=== PATIENT | male | born 1980 | race Caucasian/White ===

== ENCOUNTER 2017-04-13 10:39 | Inpatient (IN) | payer OTHER ==
[~2017-04-13] VITALS: Ht 167.6 cm; Wt 80.7 kg
[~2017-04-13 10:39] MED LIST: AMOX1TAB43 PO; BUPR2MIS SL
[2017-04-13] MEDS ORDERED: SODIUM CHLORIDE 0.9% 1000ML 1,000 ML IV ONE (10:49)
[2017-04-13] MEDS ORDERED: SODIUM CHLORIDE 0.9% 1000ML 1,000 ML IV STA (10:56)
--- NOTE | 2017-04-13 11:07 | EMERGENCY ROOM VISIT NOTE ---
History Report prepared by Dory: Kaley Lee Under the Supervision of: Dr. Roshan Gonzalez D.O. First contact with patient: 10:42 Stated Complaint: AMS/ [facility] History of Present Illness The patient is a 37 year old male who presents to the Emergency Room with a sudden change in mental status that occurred prior to arrival. Per nursing staff the patient is being held under a 302 at the [facility] and is from [place]. They note that the patient has a history of seizures and schizophrenia. Nursing staff notes that the patient has been falling and having strange movements, which is a change from his baseline. Nursing staff notes that the patient is currently undergoing alcohol and opiate withdrawal. Nursing staff from the [facility] reports that the patient fell at least three times today. Nursing staff from the [facility] report that the patient arrived at their facility on Wednesday, and notes that the patient has been walking around their facility naked into other patient's rooms. The history is limited secondary to the patient's altered mental status. Source of History: caregiver, nursing staff History Limited By: AMS Onset: prior to arrival Position: other (global) Quality: other (altered mental status) Timing: other (sudden) Review of Systems The history and ROS are limited secondary to the patient's altered mental status. Past Medical & Surgical Medical Problems: (1) Schizophrenia (2) Seizure Family History Unknown Social History Smoking Status: Current Every Day Smoker Drug Use: marijuana, other Marital Status: single Housing Status: unknown Occupation Status: unemployed Current/Historical Medications Scheduled Buprenorphine Hcl-Naloxone Hcl (Suboxone 8-2 Mg), 1 DOSE PO BID Diphenhydramine Hcl (Benadryl Allergy), 50 MG PO TID Divalproex Sodium (Depakote), 250 MG PO QAM Divalproex Sodium (Depakote), 500 MG PO HS Folic Acid (Folvite), 1 MG PO DAILY Haloperidol (Haldol), 5 MG PO TID Levetiracetam (Keppra), 500 MG PO BID Birch Tree Carbonate (Birch Tree Carbonate), 150 MG PO HS Lorazepam (Ativan), 1 MG PO DIRECTED Multivitamin (Multivitamin), 1 TAB PO DAILY Olanzapine (Zyprexa), 5 MG PO HS Sertraline (Zoloft), 25 MG PO QAM Thiamine Hcl (Vitamin B-1), 100 MG PO QAM Trazodone Hcl (Trazodone), 100 MG PO HS Allergies Coded Allergies: No Known Allergies (Unverified , 11/30/15) Physical Exam Vital Signs Date Time Temp Pulse Resp B/P (MAP) Pulse Ox O2 Delivery O2 Flow Rate FiO2 04/13/17 15:04 74 17 99 Room Air 04/13/17 15:01 137/82 04/13/17 14:59 71 16 100 04/13/17 14:54 71 24 100 04/13/17 14:39 110 22 100 04/13/17 14:34 82 28 100 04/13/17 14:31 150/96 04/13/17 14:29 89 19 100 04/13/17 14:24 81 15 100 04/13/17 14:19 73 20 100 04/13/17 14:14 83 20 99 04/13/17 14:09 86 13 100 04/13/17 14:04 81 16 94 04/13/17 14:01 141/88 04/13/17 13:59 73 16 100 04/13/17 13:54 78 14 100 04/13/17 13:49 80 19 100 04/13/17 13:44 80 17 99 04/13/17 13:39 82 19 84 04/13/17 13:34 85 22 100 04/13/17 13:30 132/89 04/13/17 13:29 81 24 100 04/13/17 13:24 81 19 100 04/13/17 13:19 81 24 99 04/13/17 13:14 82 20 100 04/13/17 13:09 85 23 100 04/13/17 13:04 81 32 99 04/13/17 12:59 87 16 04/13/17 12:54 83 14 100 04/13/17 12:49 87 21 99 04/13/17 12:44 89 23 98 04/13/17 12:39 77 20 100 04/13/17 12:34 82 18 93 04/13/17 12:30 100 Room Air 04/13/17 12:29 84 22 100 04/13/17 12:24 90 18 100 04/13/17 12:19 82 22 98 04/13/17 12:14 82 18 97 04/13/17 12:09 87 18 100 04/13/17 12:04 56 15 100 04/13/17 12:00 102/89 04/13/17 11:59 87 15 04/13/17 11:53 100 Room Air 04/13/17 11:34 62 12 115/73 100 Room Air 04/13/17 11:29 53 15 100 04/13/17 11:24 57 12 100 04/13/17 11:22 115/73 04/13/17 11:19 60 24 100 04/13/17 11:14 61 14 100 04/13/17 11:09 65 22 99 04/13/17 11:05 131/77 04/13/17 11:04 70 22 98 04/13/17 10:59 66 16 95 04/13/17 10:54 55 15 99 04/13/17 10:50 57 04/13/17 10:49 59 16 96 04/13/17 10:46 37.2 83 14 131/77 96 Room Air 04/13/17 10:45 131/77 Physical Exam GENERAL: Patient is listless, does not respond to verbal or painful stimuli. Sonorous respirations noted. EYES: Pupils are constricted and minimally reactive to light. EARS, NOSE, MOUTH AND THROAT: The nose is without any evidence of any deformity. Mucous membranes are dry tongue is midline NECK: The neck is nontender and supple. RESPIRATORY: Shallow respirations noted, no abnormal lung sounds appreciated. CARDIOVASCULAR: Bradycardic rate, but regular, no definite murmur noted to auscultation. GASTROINTESTINAL: The abdomen is soft. Bowel sounds are present in all quadrants. Abdomen is nontender MUSCULOSKELETAL/EXTREMITIES: There is no evidence of gross deformity full range of motion is noted in the hips and shoulders SKIN: Trace pedal edema bilaterally, abrasions to both lower extremities with diffuse ecchymosis, no deformity. NEUROLOGIC: Patient will not answer questions at this time, patellar reflexes are 1+ bilaterally. Medical Decision & Procedures ER Provider Diagnostic Interpretation: Radiology results as stated below per my review and radiologist interpretation: HEAD CT NONCONTRAST CT DOSE: HISTORY: Mental status change altered MS TECHNIQUE: Multiaxial CT images of the head were performed without the use of intravenous contrast. Comparison: 12/01/2015 Findings: The paranasal sinuses and mastoid air cells are clear. The calvarium and skull base are intact. The ventricles and sulci are within normal limits. There is no mass, hematoma, midline shift, or acute infarct. Impression: No acute intracranial abnormality. Electronically signed by: Derek Park M.D. 04/13/2017 11:50 AM Dictated Date/Time: 04/13/2017 11:48 AM CHEST ONE VIEW PORTABLE CLINICAL HISTORY: Sepsis dyspnea COMPARISON STUDY: No previous studies for comparison. FINDINGS: The bones soft tissues and hemidiaphragms are normal. The cardiomediastinal silhouette is normal. The lungs are clear. The pulmonary vasculature is normal. IMPRESSION: Negative chest. Electronically signed by: Derek Park M.D. 04/13/2017 11:04 AM Dictated Date/Time: 04/13/2017 11:[address] DOSE: 1129.07 mGy.cm HISTORY: Trauma fqll. altered MS TECHNIQUE: Multiaxial CT images of the cervical spine were performed and reformatted in the sagittal and coronal plane without the use of contrast. COMPARISON: None. FINDINGS: No fractures. No subluxation. Prevertebral soft tissues and the C1-C2 interval are intact. No pneumothorax. IMPRESSION: No fractures within the cervical spine. Electronically signed by: Derek Park M.D. 04/13/2017 11:52 AM Dictated Date/Time: 04/13/2017 11:50 AM Laboratory Results 04/13/17 11:19 Red Blood Count 4.01, Mean Corpuscular Volume 92.3, Mean Corpuscular Hemoglobin 32.4, Mean Corpuscular Hemoglobin Concent 35.1, Mean Platelet Volume 11.1, Neutrophils (%) (Auto) 79.6, Lymphocytes (%) (Auto) 12.6, Monocytes (%) (Auto) 7.3, Eosinophils (%) (Auto) 0.1, Basophils (%) (Auto) 0.2, Neutrophils # (Auto) 9.01, Lymphocytes # (Auto) 1.43, Monocytes # (Auto) 0.82, Eosinophils # (Auto) 0.01, Basophils # (Auto) 0.02 04/13/17 11:19 Test 04/13/17 11:19 04/13/17 11:22 04/13/17 12:10 04/13/17 14:03 White Blood Count 11.31 K/uL (4.8-10.8) Red Blood Count 4.01 M/uL (4.7-6.1) Hemoglobin 13.0 g/dL (14.0-18.0) Hematocrit 37.0 % (42-52) Mean Corpuscular Volume 92.3 fL (80-100) Mean Corpuscular Hemoglobin 32.4 pg (25-34) Mean Corpuscular Hemoglobin Concent 35.1 g/dl (32-36) Platelet Count 275 K/uL (130-400) Mean Platelet Volume 11.1 fL (7.4-10.4) Neutrophils (%) (Auto) 79.6 % Lymphocytes (%) (Auto) 12.6 % Monocytes (%) (Auto) 7.3 % Eosinophils (%) (Auto) 0.1 % Basophils (%) (Auto) 0.2 % Neutrophils # (Auto) 9.01 K/uL (1.4-6.5) Lymphocytes # (Auto) 1.43 K/uL (1.2-3.4) Monocytes # (Auto) 0.82 K/uL (0.11-0.59) Eosinophils # (Auto) 0.01 K/uL (0-0.5) Basophils # (Auto) 0.02 K/uL (0-0.2) RDW Standard Deviation 44.5 fL (36.4-46.3) RDW Coefficient of Variation 13.3 % (11.5-14.5) Immature Granulocyte % (Auto) 0.2 % Immature Granulocyte # (Auto) 0.02 K/uL (0.00-0.02) Erythrocyte Sedimentation Rate 10 mm/hr (0-14) Prothrombin Time 11.4 SECONDS (9.0-12.0) Prothromb Time International Ratio 1.1 (0.9-1.1) Activated Partial Thromboplast Time 26.8 SECONDS (21.0-31.0) Partial Thromboplastin Ratio 1.0 Venous Blood pH 7.38 (7.36-7.41) Venous Blood Partial Pressure CO2 48 mmHg (38.0-50.0) Venous Blood Partial Pressure O2 21 mmHg Venous Blood HCO3 28 mmol/L Venous Blood Oxygen Saturation < 60.0 % Venous Blood Base Excess 2.5 mmol/L Anion Gap 7.0 mmol/L (3-11) Est Creatinine Clear Calc Drug Dose 95.4 ml/min Estimated GFR () 74.4 Estimated GFR (Non- 64.2 BUN/Creatinine Ratio 23.1 (10-20) Calcium Level 9.6 mg/dl (8.5-10.1) Phosphorus Level 2.9 mg/dl (2.5-4.9) Magnesium Level 2.4 mg/dl (1.8-2.4) Total Bilirubin 1.0 mg/dl (0.2-1) Aspartate Amino Transf (AST/SGOT) 95 U/L (15-37) Alanine Aminotransferase (ALT/SGPT) 35 U/L (12-78) Alkaline Phosphatase 84 U/L (45-117) Ammonia < 10.0 umol/L (11-32) Creatine Kinase MB 23.5 ng/ml (0.5-3.6) Creatine Kinase MB Ratio 0.6 (0-3.0) Troponin I < 0.015 ng/ml (0-0.045) C-Reactive Protein 0.30 mg/dl (0-0.29) Total Protein 7.7 gm/dl (6.4-8.2) Albumin 4.4 gm/dl (3.4-5.0) Globulin 3.3 gm/dl (2.5-4.0) Albumin/Globulin Ratio 1.3 (0.9-2) Lipase 142 U/L (73-393) Valproic Acid (Depakene) Level 42 mcg/ml (50-100) Birch Tree Level < 0.2 mMOL/L (0.6-1.2) Ethyl Alcohol mg/dL < 3.0 mg/dl (0-3) Bedside Lactic Acid Venous 0.84 mmol/L (0.90-1.70) Urine Color YELLOW Urine Appearance CLEAR (CLEAR) Urine pH 5.5 (4.5-7.5) Urine Specific [place] 1.029 (1.000-1.030) Urine Protein 1+ (NEG) Urine Glucose (UA) NEG (NEG) Urine Ketones 1+ (NEG) Urine Occult Blood 1+ (NEG) Urine Nitrite NEG (NEG) Urine Bilirubin NEG (NEG) Urine Urobilinogen NEG (NEG) Urine Leukocyte Esterase NEG (NEG) Urine WBC (Auto) 1-5 /hpf (0-5) Urine RBC (Auto) 0-4 /hpf (0-4) Urine Hyaline Casts (Auto) /lpf (0-5) Urine Epithelial Cells (Auto) >30 /lpf (0-5) Urine Bacteria (Auto) NEG (NEG) Urine Renal Epithelial Cells 10-20 /lpf (0-5) Urine Pathogenic Casts /lpf (0) Total Creatine Kinase 3597 U/L (39-308) Test 04/13/17 14:50 Urine Opiates Screen NEG (NEG) Urine Methadone, Qualitative NEG (NEG) Urine Barbiturates NEG (NEG) Urine Phencyclidine (PCP) Level NEG (NEG) Ur Amphetamine/Methamphetamine NEG (NEG) MDMA (Ecstasy) Screen POS (NEG) Urine Benzodiazepines Screen NEG (NEG) Urine Cocaine Metabolite NEG (NEG) Urine Marijuana (THC) POS (NEG) Laboratory results per my review. Medications Administered Medications (Trade) Dose Ordered Sig/Natalio Route Start Time Stop Time Status Last Admin Dose Admin Sodium Chloride 1,000 ml @ 999 mls/hr Q1H1M ONCE IV 04/13/17 10:49 04/13/17 11:49 DC 04/13/17 10:49 999 MLS/HR Sodium Chloride 1,000 ml @ 999 mls/hr Q1H1M STAT IV 04/13/17 10:56 04/13/17 11:56 DC 04/13/17 10:56 999 MLS/HR ECG Indication: altered mental status Rate (beats per minute): 53 Rhythm: sinus bradycardia Findings: no ectopy, other (no acute ST segment abnormality ) Comparison ECG Date: no prior available ED Course 1048: The patient was evaluated in room C4. A complete history and physical examination were performed. 1049: Ordered Sodium Chloride 1000 ml @ 999 mls/hr IV. 1056: Ordered Sodium Chloride 1000 ml @ 999 mls/hr IV. 1212: I reevaluated the patient and he is unchanged. I discussed the exam findings with the nurse from the [facility] and I discussed the treatment plan. She verbalized complete understanding and agreement. The patient will be evaluated for further treatment. 1218: I discussed the patients case with JO ANN Dillon. He is going to evaluate the patient for further treatment. Medical Decision Differential diagnosis: Etiologies such as metabolic, infection, hypoglycemia, electrolyte abnormalities , cardiac sources, intracerebral event, toxicologic, neurologic, as well as others were entertained. Medication Reconciliation: I attest that I have personally reviewed the patient' s current medications list. The patient's blood pressure was reviewed and he was found to be hypotensive. Nursing notes reviewed. The patient is a 37-year-old male who presented to the emergency department for an evaluation from the [facility]. The patient was admitted to the [facility] for inpatient psychiatric care. He was medically cleared in [facility]. He has a history of schizophrenia as well as seizure disorder but also has a history of drug abuse. The patient started having decreased mental status ever since he was noted there 2 days ago. The patient presented to the emergency department with pupils are constricted and alteration of mental status. He was treated with IV fluids in the emergency department. He was reevaluated multiple times. His condition continued to improve while he was in the emergency department. I discussed his case with the on-call [facility] hospitalist. I considered doing the patient Narcan but his respiratory status was acceptable and his condition continued to improve. I also discussed the possibility that he may require an EEG with the admitting team. Consults Time Called: 1214 Consulting Physician: JO ANN Valdovinos Returned Call: 1218 I discussed the patients case with JO ANN Dillon. He is going to evaluate the patient for further treatment. Impression Primary Impression: Altered mental status Additional Impressions: Rhabdomyolysis Head injury History of drug abuse History of schizophrenia Dehydration Falls Scribe Attestation The scribe's documentation has been prepared under my direction and personally reviewed by me in its entirety. I confirm that the note above accurately reflects all work, treatment, procedures, and medical decision making performed by me. Departure Information Dispostion Being Evaluated By Hospitalist Referrals No Doctor, Assigned (PCP) Problem Qualifiers Primary Impression: Altered mental status Altered mental status type: unspecified Qualified Codes: R41.82 - Altered mental status, unspecified Additional Impressions: Head injury Encounter type: initial encounter Qualified Codes: S09.90XA - Unspecified injury of head, initial encounter Falls Encounter type: initial encounter Qualified Codes: W19.XXXA - Unspecified fall, initial encounter
[2017-04-13] MEDS ORDERED: ATV/1 PO (11:16)
[2017-04-13 11:35] LABS: BASO % 0.2 %; BASO ABS # 0.02 K/uL (0-0.2); COMPLETE YES; EOS % 0.1 %; IG% 0.2 %; LYMPH % 12.6 %; LYMPH ABS # 1.43 K/uL (1.2-3.4); MEAN CELL VOLUME 92.3 fL (80-100); MEAN CORPUSCULAR HEMOGLOBIN 32.4 pg (25-34); MEAN CORPUSCULAR HGB CONC 35.1 g/dl (32-36); MEAN PLATELET VOLUME 11.1 fL (7.4-10.4); MONO % 7.3 %; NEUT % 79.6 %; PLATELET COUNT 275 K/uL (130-400); RED BLOOD COUNT 4.01 M/uL (4.7-6.1); VEN BLD GAS O2 SATURATION < 60.0 %; VEN BLOOD GAS BASE EXCESS 2.5 mmol/L; VENOUS BLOOD GAS PCO2 48 mmHg (38.0-50.0); VENOUS BLOOD GAS PO2 21 mmHg; WHITE BLOOD COUNT 11.31 K/uL (4.8-10.8)
[2017-04-13] MEDS ORDERED: DIPH25CA65 PO (11:48)
[2017-04-13] MEDS ORDERED: LITH150C6 PO (11:48)
[2017-04-13] MEDS ORDERED: DIVA125T18 PO (11:48)
[2017-04-13] MEDS ORDERED: SERT25TA PO (11:48)
[2017-04-13] MEDS ORDERED: HALO5TAB PO (11:48)
[2017-04-13] MEDS ORDERED: MULT-506 PO (11:48)
[2017-04-13] MEDS ORDERED: DIVA500T59 PO (11:48)
[2017-04-13] MEDS ORDERED: BUPR1SUB23 PO (11:48)
[2017-04-13] MEDS ORDERED: TRAZ100T29 PO (11:48)
[2017-04-13] MEDS ORDERED: LEVE500T13 PO (11:48)
[2017-04-13] MEDS ORDERED: THIA100T11 PO (11:48)
[2017-04-13] MEDS ORDERED: OLAN-111 PO (11:48)
[2017-04-13] MEDS ORDERED: FOLI1TAB7 PO (11:48)
--- NOTE | 2017-04-13 11:51 | DIAGNOSTIC IMAGING REPORT ---
HEAD CT NONCONTRAST CT DOSE: HISTORY: Mental status change altered MS TECHNIQUE: Multiaxial CT images of the head were performed without the use of intravenous contrast. Comparison: 12/01/2015 Findings: The paranasal sinuses and mastoid air cells are clear. The calvarium and skull base are intact. The ventricles and sulci are within normal limits. There is no mass, hematoma, midline shift, or acute infarct. Impression: No acute intracranial abnormality. Electronically signed by: Derek Park M.D. 04/13/2017 11:50 AM Dictated Date/Time: 04/13/2017 11:48 AM
[2017-04-13 11:52] LABS: INR 1.1 (0.9-1.1); PROTHROMBIN TIME (PATIENT) 11.4 SECONDS (9.0-12.0)
--- NOTE | 2017-04-13 11:53 | DIAGNOSTIC IMAGING REPORT ---
CERVICAL SPINE CT CT DOSE: 1129.07 mGy.cm HISTORY: Trauma fqll. altered MS TECHNIQUE: Multiaxial CT images of the cervical spine were performed and reformatted in the sagittal and coronal plane without the use of contrast. COMPARISON: None. FINDINGS: No fractures. No subluxation. Prevertebral soft tissues and the C1-C2 interval are intact. No pneumothorax. IMPRESSION: No fractures within the cervical spine. Electronically signed by: Derek Park M.D. 04/13/2017 11:52 AM Dictated Date/Time: 04/13/2017 11:50 AM
[2017-04-13 11:54] LABS: ALT/SGPT 35 U/L (12-78); BLOOD UREA NITROGEN 32 mg/dl (7-18); BUN/CREATININE RATIO 23.1 (10-20); CARBON DIOXIDE 27 mmol/L (21-32); CHLORIDE 105 mmol/L (98-107); GLUCOSE 86 mg/dl (70-99); MAGNESIUM 2.4 mg/dl (1.8-2.4); SODIUM 139 mmol/L (136-145)
[2017-04-13 11:55] LABS: CALCIUM 9.6 mg/dl (8.5-10.1)
[2017-04-13] MEDS ORDERED: NALOXONE HCL 0.4 MG/1 ML VIAL/CARP IV STA (12:00)
[2017-04-13 12:08] LABS: ALB/GLOB RATIO 1.3 (0.9-2); ALKALINE PHOSPHATASE 84 U/L (45-117); AST/SGOT 95 U/L (15-37); CKMB/CK RATIO 0.6 (0-3.0); PHOSPHORUS 2.9 mg/dl (2.5-4.9)
[2017-04-13 12:11] LABS: LITHIUM < 0.2 mMOL/L (0.6-1.2)
[2017-04-13 12:30] VITALS: BP 137/86; PULSE 88; TEMP 36.7; O2SAT 100; BMI 28.8; BMI 48.2
[2017-04-13 12:42] LABS: URINE APPEARANCE CLEAR (CLEAR); URINE BILIRUBIN NEG (NEG); URINE COLOR YELLOW; URINE EPITHELIAL CELL AUTO >30 /lpf (0-5); URINE NITRITE NEG (NEG); URINE PH 5.5 (4.5-7.5); URINE SPECIFIC GRAVITY 1.029 (1.000-1.030); UROBILINOGEN NEG (NEG); ZZURINE CULT IF INDIC CATH NO
[2017-04-13 12:49] LABS: MANUAL MICROSCOPIC REQUIRED? NO; REVIEW REQ? YES
[2017-04-13 13:35] LABS: BENZODIAZEPINE, URINE NEG (NEG); COCAINE,URINE NEG (NEG); PHENCYCLIDINE, URINE NEG (NEG)
[2017-04-13] MEDS ORDERED: LORAZEPAM 0.5 MG TAB PO PRN (13:45)
[2017-04-13] MEDS ORDERED: TRAZODONE HCL 50 MG TAB PO PRN (13:45)
[2017-04-13] MEDS ORDERED: ALUMINUM/MAGNESIUM/SIMETH (MAALOX MAX) 30 ML UDC PO PRN (14:15)
[2017-04-13] MEDS ORDERED: POLYETHYLENE (MIRALAX) 17 GM PACK PO PRN (14:15)
[2017-04-13] MEDS ORDERED: MAGNESIUM HYDROXIDE SUSP 30 ML UDC PO PRN (14:15)
[2017-04-13] MEDS ORDERED: ACETAMINOPHEN 325 MG TAB PO PRN (14:15)
[2017-04-13 15:16] VITALS: Ht 167.6 cm; Wt 80.7 kg
--- NOTE | 2017-04-13 15:20 | HISTORY & PHYSICAL EXAMINATION ---
DATE OF ADMISSION: 04/13/2017 CHIEF COMPLAINT: Change in mental status. HISTORY OF PRESENT ILLNESS: The patient is a 37-year-old male with a history of schizophrenia, came from mental psychiatric facility. The patient initially was at [facility] on 04/11/2017 and was medically cleared and committed involuntarily to admission to [facility] 302. Upon the H&P that I received from [facility] presentation was uneventful. He was awake, alert, oriented upon admission to [facility]. While he stated he has multiple falls and he was hitting his head and joints and he was very lethargic most of the time. Today, staff found him almost unresponsive. He was sent to our ED facility for further evaluation. While in our facility he seems to be very dehydrated and was started on IV fluid. After about 2-3 hours, he started to be able to communicate and answer simple questions and follow simple commands. He will be admitted for further evaluation and management. PAST MEDICAL HISTORY: Schizophrenia. SOCIAL HISTORY: History of heroin abuse in the past, currently on Suboxone. The rest of the social history was not obtainable due to his mental status. FAMILY HISTORY: Unobtainable due to his mental status. REVIEW OF SYSTEMS: He denied any pain, but he was lethargic, unsure if I can count on this, but at bed rest of the review of systems is unobtainable. LABORATORY DATA: White blood cell count of 11.3, hemoglobin 13, platelet 275. BUN is 32, creatinine 1.4, BUN is 105. Sodium 139, potassium is 4. Urine drug screen is pending. Magnesium level was 2.4 and phosphorus 2.9. AST is 95, ALT is 35. Ammonia level is less than 10. Total creatinine kinase is 4228. Troponin is negative. Cornelius level is undetectable. Valproic acid level is 42. HOME MEDICATIONS: 1. Suboxone 8-2 mg 1 p.o. b.i.d. 2. Benadryl 50 mg p.o. t.i.d. 3. Depakote 250 mg q.a.m. and 500 at bedtime. 4. Folic acid and thiamine supplements. 5. Multivitamin. 6. Haldol 5 mg p.o. t.i.d. 7. Keppra 500 p.o. b.i.d. 8. Cornelius carbonate 150 mg p.o. at bedtime. 9. Ativan 1 mg p.o. as directed. 10. Zyprexa 5 mg p.o. at bedtime. 11. Zoloft 25 mg p.o. q.a.m. 12. Trazodone 100 mg p.o. at bedtime. ALLERGIES: No known allergy. PHYSICAL EXAMINATION: VITAL SIGNS: Temperature 37.2, pulse 82, respirations 22, blood pressure 102/89, saturation 98% room air. GENERAL: The patient is average built, appears to be not in acute distress, very lethargic. HEAD, EYES, EARS, NOSE, AND THROAT: No jaundice, no pallor. Dry mucous membrane, had bruise on the left eyebrow. NECK: Supple. No swelling. HEART: S1, S2 normal. No gallop, rub or murmur. LUNGS: Clear to auscultation bilaterally. Normal chest wall expansion. ABDOMEN: Soft, nontender, nondistended. NEUROLOGIC: Lethargic but follows simple commands. Moves all extremities. Sensation intact. EXTREMITIES: No cyanosis or edema. SKIN: No rash or petechia. PSYCHIATRIC: Unable to evaluate since he is lethargic, but he was able to answer questions appropriately. IMAGING: CT head showed no acute intracranial abnormality. A chest x-ray was negative. CT cervical spine showed no fractures. ASSESSMENT: 1. Lethargy/metabolic encephalopathy, multifactorial secondary to below. 2. Unintentional over medication, most likely secondary to Suboxone, Haldol, Benadryl, trazodone and Ativan. 3. Rhabdomyolysis. 4. Acute kidney injury. 5. Severe dehydration. 6. Schizophrenia. 7. History of heroin abuse, currently on Suboxone. 8. History of alcohol abuse, currently on folic acid and thiamine supplements. PLAN: 1. Admit patient to telemetry. Start patient on generous IV fluid hydration. 2. Monitor renal function and electrolytes. 3. I adjusted some of patient's medications. I did decrease his trazodone to 50 mg instead of 100. I decreased his Haldol to 2 mg instead of 5 mg t.i.d. I decreased his lorazepam to 0.5 mg q. 8 hours. 4. Consult neurologist to rule out seizure and postictal condition. 5. Consult psychiatrist for adjustment of his psych meds. 6. GI and DVT prophylaxis.
[2017-04-13 15:43] LABS: BENZODIAZEPINE, URINE NEG (NEG); COCAINE,URINE NEG (NEG); PHENCYCLIDINE, URINE NEG (NEG)
[2017-04-13 16:30] VITALS: O2SAT 99
[2017-04-13] MEDS: LEVETIRACETAM 500 MG TAB PO SCH ×2 (17:21→21:40)
[2017-04-13] MEDS: DIVALPROEX DELAY REL TAB 125 MG TABEC PO SCH (17:21)
[2017-04-13] MEDS: SODIUM CHLORIDE 0.9% 1000ML 1,000 ML IV SCH ×2 (17:24→23:29)
[2017-04-13 19:04] VITALS: BP 130/85; PULSE 52; TEMP 36.2; O2SAT 99
[2017-04-13] MEDS ORDERED: BUPRENORPHINE/NALOXONE 8/2 MG TAB SL SCH (21:00)
[2017-04-13] MEDS ORDERED: DIVALPROEX SODIUM 500 MG DELAY RELEASE TAB PO SCH (21:00)
[2017-04-13] MEDS: HALOPERIDOL 1 MG TAB PO SCH (21:00)
[2017-04-13] MEDS ORDERED: BUPRENORPHINE/NALOXONE 2/0.5MG 1 TAB PO SCH (21:00)
[2017-04-13] MEDS ORDERED: LITHIUM CARBONATE SR 300 MG TAB (LITHOBID) PO SCH (21:00)
--- NOTE | 2017-04-13 21:34 | Progress Note ---
Progress Note Date of Service Apr 13, 2017. Progress Note Notified by nursing that patient. Patient remains somnolent, per baseline as noted since being admitted. Notes that [facility] records suggest he was EtOH withdrawal protocol Due to AMS; held Haldol, Zyprexa and Suboxone until mentation clears Also ordered for alcohol withdrawal scale assessments; will hold off on Librium/ Ativan at this time, as patient is already arriving with reduced LOC Will continue to follow
[2017-04-13] MEDS: HEPARIN SOD 5000 UNIT/0.5 ML CARP SQ SCH (21:41)
[2017-04-13 23:01] VITALS: BP 128/70; PULSE 78; TEMP 36.7; O2SAT 98
[2017-04-14 02:53] VITALS: BP 124/76; PULSE 72; TEMP 35.9; O2SAT 98
[2017-04-14] MEDS: HEPARIN SOD 5000 UNIT/0.5 ML CARP SQ SCH ×3 (06:00→20:22)
[2017-04-14] MEDS: SODIUM CHLORIDE 0.9% 1000ML 1,000 ML IV SCH ×2 (06:20→11:37)
[2017-04-14 07:50] LABS: ESTIMATED AVERAGE GLUCOSE 108 mg/dl; HA1C FLAG Normal (Normal)
[2017-04-14 08:22] LABS: ALB/GLOB RATIO 1.2 (0.9-2); BUN/CREATININE RATIO 16.8 (10-20); CALCIUM 7.9 mg/dl (8.5-10.1); CREATININE 0.95 mg/dl (0.60-1.40); MAGNESIUM 2.4 mg/dl (1.8-2.4); POTASSIUM 3.8 mmol/L (3.5-5.1)
[2017-04-14 08:30] LABS: BASO % 0.5 %; BASO ABS # 0.02 K/uL (0-0.2); COMPLETE YES; EOS % 2.4 %; HEMATOCRIT 33.2 % (42-52); IG% 0.3 %; LYMPH ABS # 1.29 K/uL (1.2-3.4); MEAN CORPUSCULAR HEMOGLOBIN 31.3 pg (25-34); MEAN PLATELET VOLUME 10.9 fL (7.4-10.4); MONO % 12.2 %; NEUT % 49.6 %; PLATELET COUNT 240 K/uL (130-400); RED BLOOD COUNT 3.61 M/uL (4.7-6.1); WHITE BLOOD COUNT 3.69 K/uL (4.8-10.8)
[2017-04-14] MEDS: THIAMINE HCL 100 MG TAB PO SCH (08:34)
[2017-04-14] MEDS: LEVETIRACETAM 500 MG TAB PO SCH ×2 (08:34→20:22)
[2017-04-14] MEDS: DIVALPROEX DELAY REL TAB 125 MG TABEC PO SCH (08:35)
[2017-04-14] MEDS: FAMOTIDINE IV INJ 20 MG in DEXTROSE 5% 100ML 100 ML IV SCH (08:35)
[2017-04-14] MEDS: MULTIVITAMIN TAB PO SCH (08:35)
[2017-04-14] MEDS ORDERED: SERTRALINE HCL 50 MG TAB PO SCH (09:00)
[2017-04-14] MEDS ORDERED: DIVALPROEX DELAY REL TAB 125 MG TABEC PO ONE (11:15)
--- NOTE | 2017-04-14 11:15 | Neurology Consultation ---
Neurology Consultation Date of Consultation: Apr 14, 2017. Attending Physician: Angeline Mcintyre MD [facility] Reason for Consultation: Patient is a 37-year-old, who was asked to see the request of Dr. Trevor Aparicio, for neurologic consultation regarding unresponsive state and history of seizures. History of Present Illness Source: patient, caregiver, hospital records This patient has a long-standing history of drug or alcohol abuse. He states that for many years he would get drunk every night although he claims he has not been drinking much alcohol the last 5 years. He has abused multiple drugs including LSD, heroin, marijuana. He's had a history of intermittent seizures since 2007. In November 2015 he was admitted to the hospital for a seizure. This occurred after he took LSD. An MRI of the brain was unremarkable except for some sinusitis and EEG was unremarkable. He has had one seizure since and that was in March 2016. He's been on Keppra and Dilantin without significant seizures. He has been on Suboxone for quite some time because of his narcotic usage. Patient has a history of bipolar disorder and schizophrenia. He is on multiple medications for these problems as well including lithium, Zyprexa, Zoloft, trazodone, Haldol. He was admitted to the [facility] on a 302 on April 11. His first day was unremarkable. On April 12, he was acting unusual and was walking around naked and going into other patient's rooms. He fell several times over a 24-hour period into April 13. The patient does not remember falling. He was brought to the emergency room April 13 at 1046 hours in an unresponsive state. Temperature was 37 2, pulse 83, respiratory 14, blood pressure 131/77 and O2 saturation 96%. He was described as listless and had already decreased response to voice and would not follow commands CT scan of the head was unremarkable. Chest x-ray was unremarkable. CT scan of the cervical spine was unremarkable. Laboratory studies revealed a mild anemia on the CBC. ESR was 10. Chem profile was unremarkable. CK was elevated at 4228. Later on yesterday it was 3597. The patient was described as becoming more alert overnight last night. This morning, he is no complaint of pain or headache. He is not achy or sore, dizzy, or vertiginous. Past Medical/Surgical History Medical Problems: (1) Altered mental status Status: Acute (2) Dehydration Status: Acute (3) Falls Status: Acute (4) Head injury Status: Acute (5) History of drug abuse Status: Acute (6) History of schizophrenia Status: Acute (7) Hyperglycemia Status: Acute (8) Renal failure Status: Acute (9) Rhabdomyolysis Status: Acute History of seizures on anticonvulsants. No history of previous surgery. Family History Mother is alive at age 57 and has no significant medical problems Father age 54. He was drinking one outside in the winter and he ended up falling and "freezing to " Social History Patient smokes 2 pack of cigarettes per day for the last 15 years Patient was a markedly heavy alcohol user in the past drinking to excess nightly but claims she drinks intermittently now. He has used narcotics including heroin, marijuana, and LSD. He has not been employed and is on social security disability for the last 4-5 years.. Smoking Status: Current every day smoker Smokeless Tobacco Use: No Alcohol Use: occasionally Drug Use: marijuana, other Marital Status: single Housing Status: lives with family, unknown Occupation Status: unemployed Allergies Coded Allergies: No Known Allergies (Unverified , 11/30/15) Current Inpatient Medications Current Inpatient Medications Medications (Trade) Dose Ordered Sig/Natalio Route Start Time Stop Time Status Last Admin Dose Admin Divalproex Sodium (Depakote Delay Rel Tab) 250 mg QAM PO 04/13/17 15:00 05/13/17 14:59 04/14/17 08:35 250 MG Divalproex Sodium (Depakote Delay Rel Tab) 500 mg HS PO 04/13/17 21:00 05/13/17 20:59 04/13/17 21:40 500 MG Folic Acid (Folvite Tab) 1 mg DAILY PO 04/14/17 09:00 05/14/17 08:59 04/14/17 08:34 1 MG Haloperidol (Haldol Tab) 2 mg TID PO 04/13/17 21:00 05/13/17 20:59 Future Hold Levetiracetam (Keppra Tab) 500 mg BID PO 04/13/17 15:00 05/13/17 14:59 04/14/17 08:34 500 MG Lorazepam (Ativan Tab) 0.5 mg Q8H PRN PO 04/13/17 13:45 7/20/17 13:44 Multivitamins (Multivitamin Tab) 1 tab DAILY PO 04/14/17 09:00 05/14/17 08:59 04/14/17 08:35 1 TAB Olanzapine (Zyprexa Tab) 5 mg HS PO 04/13/17 21:00 05/13/17 20:59 Future Hold Sertraline HCl (Zoloft Tab) 25 mg QAM PO 04/14/17 09:00 05/14/17 08:59 04/14/17 08:35 25 MG Thiamine HCl (Vitamin B-1 Tab) 100 mg QAM PO 04/14/17 09:00 05/14/17 08:59 04/14/17 08:34 100 MG Trazodone HCl (Desyrel Tab) 50 mg HS PRN PO 04/13/17 13:45 05/13/17 13:44 Buprenorphine/ Naloxone (Suboxone Tab) 1 ea BID SL 04/13/17 21:00 05/13/17 20:59 Future Hold [place] Carbonate (Lithobid Tab) 150 mg HS PO 04/13/17 21:00 05/13/17 20:59 04/13/17 21:40 150 MG Sodium Chloride 1,000 ml @ 150 mls/hr Q6H40M IV 04/13/17 16:44 05/13/17 16:43 04/14/17 06:20 150 MLS/HR Famotidine 20 mg/ Dextrose 102 ml @ 200 mls/hr DAILY IV 04/14/17 09:00 05/14/17 08:59 04/14/17 08:35 200 MLS/HR Acetaminophen (Tylenol Tab) 650 mg Q4H PRN PO 04/13/17 14:15 05/13/17 14:14 Al Hydrox/Mg Hydrox/Simethicone (Maalox Max Susp) 15 ml Q4H PRN PO 04/13/17 14:15 05/13/17 14:14 Magnesium Hydroxide (Milk Of Magnesia Susp) 30 ml Q12H PRN PO 04/13/17 14:15 05/13/17 14:14 Polyethylene (Miralax Powder Packet) 17 gm DAILY PRN PO 04/13/17 14:15 05/13/17 14:14 Heparin Sodium (Porcine) (Heparin Sq 5000 Unit/0.5ml) 5,000 unit Q8 SQ 04/13/17 22:00 05/13/17 21:59 Review of Systems Constitutional: + fatigue, No weakness Eyes: No worsening of vision, No diplopia ENT: No hearing loss, No tinnitus Respiratory: No cough, No shortness of breath Cardiovascular: No chest pain, No palpitations Abdomen: No pain, No nausea Musculoskeletal: No joint pain, No muscle pain Genitourinary - Male: No dysuria, No urinary incontinence Neurologic: No memory loss, No weakness, No numbness/tingling, No vertigo, No balance problems Psychiatric: No depression symptoms, No anxiety Endocrine: + fatigue Hematologic / Lymphatic: No abnormal bleeding/bruising Integumentary: No rash Allergic / Immunologic: No hives Physical Exam Vital Signs (Past 24 Hrs): Date Time Temp Pulse Resp B/P (MAP) Pulse Ox O2 Delivery O2 Flow Rate FiO2 04/14/17 08:00 Room Air 04/14/17 04:00 Room Air 04/14/17 02:53 35.9 72 16 124/76 (92) 98 Room Air 04/13/17 23:59 Room Air 04/13/17 23:01 36.7 78 16 128/70 (89) 98 Room Air 04/13/17 20:00 Room Air 04/13/17 19:04 36.2 52 16 130/85 (100) 99 Room Air 04/13/17 16:30 36.7 74 17 137/82 99 04/13/17 15:04 74 17 99 Room Air 04/13/17 15:01 137/82 04/13/17 14:59 71 16 100 04/13/17 14:54 71 24 100 04/13/17 14:39 110 22 100 04/13/17 14:34 82 28 100 04/13/17 14:31 150/96 04/13/17 14:29 89 19 100 04/13/17 14:24 81 15 100 04/13/17 14:19 73 20 100 04/13/17 14:14 83 20 99 04/13/17 14:09 86 13 100 04/13/17 14:04 81 16 94 04/13/17 14:01 141/88 04/13/17 13:59 73 16 100 04/13/17 13:54 78 14 100 04/13/17 13:49 80 19 100 04/13/17 13:44 80 17 99 04/13/17 13:39 82 19 84 04/13/17 13:34 85 22 100 04/13/17 13:30 132/89 04/13/17 13:29 81 24 100 04/13/17 13:24 81 19 100 04/13/17 13:19 81 24 99 04/13/17 13:14 82 20 100 04/13/17 13:09 85 23 100 04/13/17 13:04 81 32 99 04/13/17 12:59 87 16 04/13/17 12:54 83 14 100 04/13/17 12:49 87 21 99 04/13/17 12:44 89 23 98 04/13/17 12:39 77 20 100 04/13/17 12:34 82 18 93 04/13/17 12:30 36.7 88 15 137/86 100 Room Air 04/13/17 12:29 84 22 100 04/13/17 12:24 90 18 100 04/13/17 12:19 82 22 98 04/13/17 12:14 82 18 97 04/13/17 12:09 87 18 100 04/13/17 12:04 56 15 100 04/13/17 12:00 102/89 04/13/17 11:59 87 15 04/13/17 11:53 100 Room Air 04/13/17 11:34 62 12 115/73 100 Room Air 04/13/17 11:29 53 15 100 04/13/17 11:24 57 12 100 04/13/17 11:22 115/73 04/13/17 11:19 60 24 100 04/13/17 11:14 61 14 100 04/13/17 11:09 65 22 99 04/13/17 11:05 131/77 04/13/17 11:04 70 22 98 04/13/17 10:59 66 16 95 Patient is right-handed. The patient is awake and alert. Speech is normal without aphasia or dysarthria. Mentation and thought processes are mildly slow but otherwise intact with orientation and reasonable fund of knowledge. Affect is mildly flat but mood and affect are otherwise normal and appropriate. Appearance and grooming are normal. The discs are sharp with positive venous pulsations. There are no exudates, hemorrhages, or blood vessel changes seen. Pupils are 4mm bilaterally and reactive to light. Extraocular eye muscles are intact without nystagmus. Visual acuity and visual butler seem normal grossly to confrontation. There are no deficits to sensation of the face bilaterally. Corneal reflexes are positive bilaterally. Facial strength and symmetry is normal bilaterally. Hearing seems intact grossly to voice and finger rub. Palate moves well without asymmetry. There is normal sternocleidomastoid and trapezius strength bilaterally. Tongue is midline with good strength bilaterally. Neck is with full range of motion without discomfort. There are no cervical bruits. There are no cranial or ocular bruits. Heart is without murmur. Cervical, thoracic, and lumbar spine are nontender to palpation. Gait is is not tested but stance sitting up in bed is quite normal. With outstretched arms there is no drift. There are no resting tremors. He has very mild coarse action tremor of the limbs diffusely. There is no ataxia with [id number] testing. There is good facility in the hands. There are no abnormal involuntary movements noted. Motor strength is 5/5 diffusely in the arms bilaterally including deltoids, biceps, brachioradialis, wrist flexors and extensors, real estate developer, and intrinsic hand muscles. Motor strength is 5/5 diffusely in the legs bilaterally including hip flexors, quadriceps, hamstring, gastrocnemius, tibialis anterior, tibialis posterior, and peroneii muscles bilaterally. Toe extensors are normal and there is good bulk in the extensor digitorum brevis muscle bilaterally. The limbs have good tone without rigidity or spasticity, and there is no atrophy noted. Muscle bulk is normal, there is no tenderness, no myotonia noted to percussion, and no fasciculations seen. Sensory examination is intact to pin and touch throughout all four limbs. Reflexes are 2/4 in the biceps, triceps, brachioradialis, quadriceps, and Achilles tendons bilaterally. Toes are downgoing with plantar stimulation bilaterally. Peripheral pulses are present and of normal quality distally in all four limbs. There is no peripheral edema noted. Laboratory Results Past 24 Hours: 04/14/17 06:55 Red Blood Count 3.61, Mean Corpuscular Volume 92.0, Mean Corpuscular Hemoglobin 31.3, Mean Corpuscular Hemoglobin Concent 34.0, Mean Platelet Volume 10.9, Neutrophils (%) (Auto) 49.6, Lymphocytes (%) (Auto) 35.0, Monocytes (%) (Auto) 12.2, Eosinophils (%) (Auto) 2.4, Basophils (%) (Auto) 0.5, Neutrophils # (Auto ) 1.83, Lymphocytes # (Auto) 1.29, Monocytes # (Auto) 0.45, Eosinophils # (Auto ) 0.09, Basophils # (Auto) 0.02 04/14/17 06:55 Test 04/13/17 11:19 04/13/17 11:22 04/13/17 12:10 04/13/17 14:03 Erythrocyte Sedimentation Rate 10 mm/hr (0-14) Prothrombin Time 11.4 SECONDS (9.0-12.0) Prothromb Time International Ratio 1.1 (0.9-1.1) Activated Partial Thromboplast Time 26.8 SECONDS (21.0-31.0) Partial Thromboplastin Ratio 1.0 Venous Blood pH 7.38 (7.36-7.41) Venous Blood Partial Pressure CO2 48 mmHg (38.0-50.0) Venous Blood Partial Pressure O2 21 mmHg Venous Blood HCO3 28 mmol/L Venous Blood Oxygen Saturation < 60.0 % Venous Blood Base Excess 2.5 mmol/L Ammonia < 10.0 umol/L (11-32) Creatine Kinase MB 23.5 ng/ml (0.5-3.6) Creatine Kinase MB Ratio 0.6 (0-3.0) Troponin I < 0.015 ng/ml (0-0.045) C-Reactive Protein 0.30 mg/dl (0-0.29) Lipase 142 U/L (73-393) Valproic Acid (Depakene) Level 42 mcg/ml (50-100) [place] Level < 0.2 mMOL/L (0.6-1.2) Ethyl Alcohol mg/dL < 3.0 mg/dl (0-3) Bedside Lactic Acid Venous 0.84 mmol/L (0.90-1.70) Urine Color YELLOW Urine Appearance CLEAR (CLEAR) Urine pH 5.5 (4.5-7.5) Urine Specific [place] 1.029 (1.000-1.030) Urine Protein 1+ (NEG) Urine Glucose (UA) NEG (NEG) Urine Ketones 1+ (NEG) Urine Occult Blood 1+ (NEG) Urine Nitrite NEG (NEG) Urine Bilirubin NEG (NEG) Urine Urobilinogen NEG (NEG) Urine Leukocyte Esterase NEG (NEG) Urine WBC (Auto) 1-5 /hpf (0-5) Urine RBC (Auto) 0-4 /hpf (0-4) Urine Hyaline Casts (Auto) /lpf (0-5) Urine Epithelial Cells (Auto) >30 /lpf (0-5) Urine Bacteria (Auto) NEG (NEG) Urine Renal Epithelial Cells 10-20 /lpf (0-5) Urine Pathogenic Casts /lpf (0) Total Creatine Kinase 3597 U/L (39-308) Test 04/13/17 14:50 04/14/17 06:55 Urine Opiates Screen NEG (NEG) Urine Methadone, Qualitative NEG (NEG) Urine Barbiturates NEG (NEG) Urine Phencyclidine (PCP) Level NEG (NEG) Ur Amphetamine/Methamphetamine NEG (NEG) MDMA (Ecstasy) Screen POS (NEG) Urine Benzodiazepines Screen NEG (NEG) Urine Cocaine Metabolite NEG (NEG) Urine Marijuana (THC) POS (NEG) White Blood Count 3.69 K/uL (4.8-10.8) Red Blood Count 3.61 M/uL (4.7-6.1) Hemoglobin 11.3 g/dL (14.0-18.0) Hematocrit 33.2 % (42-52) Mean Corpuscular Volume 92.0 fL (80-100) Mean Corpuscular Hemoglobin 31.3 pg (25-34) Mean Corpuscular Hemoglobin Concent 34.0 g/dl (32-36) Platelet Count 240 K/uL (130-400) Mean Platelet Volume 10.9 fL (7.4-10.4) Neutrophils (%) (Auto) 49.6 % Lymphocytes (%) (Auto) 35.0 % Monocytes (%) (Auto) 12.2 % Eosinophils (%) (Auto) 2.4 % Basophils (%) (Auto) 0.5 % Neutrophils # (Auto) 1.83 K/uL (1.4-6.5) Lymphocytes # (Auto) 1.29 K/uL (1.2-3.4) Monocytes # (Auto) 0.45 K/uL (0.11-0.59) Eosinophils # (Auto) 0.09 K/uL (0-0.5) Basophils # (Auto) 0.02 K/uL (0-0.2) RDW Standard Deviation 45.2 fL (36.4-46.3) RDW Coefficient of Variation 13.4 % (11.5-14.5) Immature Granulocyte % (Auto) 0.3 % Immature Granulocyte # (Auto) 0.01 K/uL (0.00-0.02) Anion Gap 6.0 mmol/L (3-11) Est Creatinine Clear Calc Drug Dose 108.0 ml/min Estimated GFR () 118.9 Estimated GFR (Non- 102.6 BUN/Creatinine Ratio 16.8 (10-20) Estimated Average Glucose 108 mg/dl Hemoglobin A1c 5.4 % (4.5-5.6) Lactic Acid Level 0.5 mmol/L (0.4-2.0) Calcium Level 7.9 mg/dl (8.5-10.1) Phosphorus Level 3.0 mg/dl (2.5-4.9) Magnesium Level 2.4 mg/dl (1.8-2.4) Total Bilirubin 1.0 mg/dl (0.2-1) Aspartate Amino Transf (AST/SGOT) 64 U/L (15-37) Alanine Aminotransferase (ALT/SGPT) 31 U/L (12-78) Alkaline Phosphatase 70 U/L (45-117) Total Protein 5.9 gm/dl (6.4-8.2) Albumin 3.2 gm/dl (3.4-5.0) Globulin 2.7 gm/dl (2.5-4.0) Albumin/Globulin Ratio 1.2 (0.9-2) Imaging HEAD CT NONCONTRAST CT DOSE: HISTORY: Mental status change altered MS TECHNIQUE: Multiaxial CT images of the head were performed without the use of intravenous contrast. Comparison: 12/01/2015 Findings: The paranasal sinuses and mastoid air cells are clear. The calvarium and skull base are intact. The ventricles and sulci are within normal limits. There is no mass, hematoma, midline shift, or acute infarct. Impression: No acute intracranial abnormality. Electronically signed by: Derek Park M.D. 04/13/2017 11:50 AM Impression 1. Unresponsive episode. The etiology of this event is not readily apparent but I suspect its seizure with prolonged postictal state. A withdrawal seizure is possible although he was on withdrawal protocol. Currently, he has no evidence of encephalopathy, meningeal signs, or focal neurologic findings. 2. History of seizures, likely related to drug and alcohol use and abuse. 3. History of bipolar disorder and schizophrenia on multiple medication. 4. Elevated CK This is likely secondary to muscle trauma from multiple falls. He has multiple bruises on his body including his right forearm, left orbit, and left upper mid back 5. Significant drug and alcohol abuse history. Plan 1. MRI of the brain with and without contrast 2. EEG routine 3. Keep Keppra 500 mg by mouth twice a day 4. Increase Depakote to 500 mg by mouth twice a day 5. Follow serial CKs. 6. Further medication adjustment will be made as an outpatient, also depending on his clinical course. I spoke with Dr. Renee regarding this case including differential diagnosis and treatment options.
[2017-04-14 11:45] VITALS: BP 133/86; PULSE 77; TEMP 36.6; O2SAT 98
--- NOTE | 2017-04-14 12:30 | Psychiatric Consultation ---
Consultation Date of Consultation Apr 14, 2017. Identifying Data Rosendo Singer is a 37-year-old male who currently lives in with his mother in [place]. Rosendo Singer was admitted to medicine from the emergency department on 04/13/17 after he was brought there from inpatient psychiatry at the [facility]. According to the record from the [facility], the patient had been admitted there 2 days earlier because of disorganized thinking, disorganized behavior, the fact that he was "heavily responding to internal stimuli," and having "severe auditory and visual hallucinations." Chief Complaint "[I was at the [facility] and I kept falling down.]". History of Present Illness camilo Singer is a 37-year-old male who currently lives in with his mother in [place]. Rosendo Singer was admitted to medicine from the emergency department on 04/13/17 after he was brought there from inpatient psychiatry at the [facility]. According to the record from the [facility], the patient had been admitted there 2 days earlier because of disorganized thinking, disorganized behavior, the fact that he was "heavily responding to internal stimuli," and having "severe auditory and visual hallucinations." According to the record, while at the [facility] the patient sustained at least 4 falls, and the staff at the [facility] report that the patient's mental status became progressively more altered. More specifically, he was described as confused, disoriented, unresponsive to verbal stimuli, and increasingly more disorganized, both behaviorally and cognitively. The patient reports that he has a history of grand mal seizures and is prescribed Keppra as an anticonvulsant. Laboratory testing revealed the patient had a creatinine kinase level of 3597, and he was given the diagnosis of rhabdomyolysis. In the absence of a coherent history from the patient, it was also thought the patient was experiencing heroin and/ or alcohol withdrawal. Complicating the patient's clinical picture is the fact that he has a long history of the abuse of a number of different chemical substances, including but not limited to opioids (prescription and heroin) and alcohol. During the initial portion of his stay in the medical floor, the patient remained disorganized and poorly responsive. Psychiatry has been consulted to evaluate and make recommendations concerning his medications. Please refer to the emergency department record and recent progress notes. Past Psychiatric History Current OP Treatment: no current treatment Prior OP Treatment: psychiatrist, therapist Prior Psych Hospitalizations: [facility] Access to a Gun: No Suicide Attempts: No Past Medication Trials The patient reports that he had been prescribed lithium carbonate prior to admission, but had not been taking it. Currently, he is taking Suboxone, Depakote, Keppra, Zyprexa, sertraline, haloperidol, trazodone for sleep, and lorazepam as needed for anxiety. Additional Notes The patient takes Keppra because of a history of grand mal seizures. Past Medical/Surgical History History of Concussion/Seizure: Yes (1) Schizophrenia (2) History of drug abuse (3) Altered mental status (4) Rhabdomyolysis (5) Seizure Allergies Allergies: Coded Allergies: No Known Allergies (Unverified , 11/30/15) Home Medications Scheduled Buprenorphine Hcl-Naloxone Hcl (Suboxone 8-2 Mg), 1 DOSE PO BID Diphenhydramine Hcl (Benadryl Allergy), 50 MG PO TID Divalproex Sodium (Depakote), 250 MG PO QAM Divalproex Sodium (Depakote), 500 MG PO HS Folic Acid (Folvite), 1 MG PO DAILY Haloperidol (Haldol), 5 MG PO TID Levetiracetam (Keppra), 500 MG PO BID [place] Carbonate ([place] Carbonate), 150 MG PO HS Lorazepam (Ativan), 1 MG PO DIRECTED Multivitamin (Multivitamin), 1 TAB PO DAILY Olanzapine (Zyprexa), 5 MG PO HS Sertraline (Zoloft), 25 MG PO QAM Thiamine Hcl (Vitamin B-1), 100 MG PO QAM Trazodone Hcl (Trazodone), 100 MG PO HS Family History Unknown History of Suicide: No History of Substance Abuse: Yes Psychiatric History: Yes The patient reportedly has a history of a diagnosis of schizophrenia. However, the record from the [facility] reports the patient's very psychiatric diagnosis is schizoaffective disorder, bipolar type, current episode manic. He also has a known history of abuse of chemical substances, including opioids and alcohol. Alcohol Use Alcohol Use In Past 12 Months: Yes Smoking Use Smoking Status: Current Every Day Smoker (the patient says that he smokes 2 packs of cigarettes a day, and at that he knows that he shouldn't but is not interested in stopping.) Substance History As noted above, it had been thought admissions the patient was experiencing alcohol and/or opioid withdrawal. At the time of admission, the patient was not able to provide a coherent history. Today when I interviewed him he demonstrated that he was fully oriented to person, place, time and situation. He confirms that he has an extensive history of substance use, including heroin , opioid medications, cocaine, marijuana, hallucinogens, and alcohol, but denies any use of "ecstasy." Never, he says that he has not used any of these chemical substances, other than marijuana and tobacco, for approximately 3 months. He says that he stopped because he realized that continued use of chemical substances were dangerous. The record does not include evidence the patient ever experienced physical symptoms consistent with alcohol or heroin withdrawal. Personal History Education: other (the patient evidently dropped out of high school in the 12th grade, but successfully completed a GED. He says that he has not attended college.) Work History: The patient reports that he is unemployed and supported by his mother and by disability benefits. Relationship History: never Children: none Spiritual Affiliation: not specified Review of Systems Constitutional: denies no symptoms reported, denies see HPI, denies chills, denies diaphoresis, denies fever, denies malaise, denies weakness, denies other Eyes: denies: no symptoms, as stated in HPI, eye pain, tearing, itching, redness, discharge, double vision, visual changes, blurred vision, photophobia, other Cardiovascular: denies: no symptoms reported, see HPI, chest pain, chest tightness, chest pressure, diaphoresis, palpitations, syncope, other Respiratory: denies: no symptoms reported, see HPI, cough, orthopnea, short of breath, stridor, wheezing, sputum production, cyanosis, SALMON, PND, other Gastrointestinal: denies no symptoms reported, denies see HPI, denies abdominal pain, denies constipation, denies diarrhea, denies nausea, denies vomiting, denies other Genitourinary - Male: denies: no symptoms, see HPI, rash, amenorrhea, penile itching, penile discharge, testicular pain, testicular swelling, impotence, other Musculoskeletal: other (the patient on admission had a creatinine kinase level of 3597, and was given a diagnosis of rhabdomyolysis.) Integumentary: denies no symptoms reported, denies see HPI, denies change in color, denies change in hair/nails, denies dryness, denies lesions, denies lumps , denies rash, denies other Neurologic: reports: seizure (patient has a known history of grand mal seizures and it takes anticonvulsant medications (Keppra)) Endocrine: denies: no symptoms, as stated in HPI, cold intolerance, heat intolerance, hair changes, goiter, polydipsia, polyuria, skin changes, other Examination Physical Examination Please refer to the emergency department physical examination, which is accepted. Vital Signs Vital Signs Past 12 Hours Date Time Temp Pulse Resp B/P (MAP) Pulse Ox O2 Delivery O2 Flow Rate FiO2 04/14/17 11:45 36.6 77 17 133/86 (102) 98 Room Air 04/14/17 08:00 Room Air 04/14/17 04:00 Room Air 04/14/17 02:53 35.9 72 16 124/76 (92) 98 Room Air Laboratory Results Last 24 Hours Test 04/13/17 14:03 04/13/17 14:50 04/14/17 06:55 Total Creatine Kinase 3597 U/L 2271 U/L Urine Opiates Screen NEG Urine Methadone, Qualitative NEG Urine Barbiturates NEG Urine Phencyclidine (PCP) Level NEG Ur Amphetamine/Methamphetamine NEG MDMA (Ecstasy) Screen POS Urine Benzodiazepines Screen NEG Urine Cocaine Metabolite NEG Urine Marijuana (THC) POS White Blood Count 3.69 K/uL Red Blood Count 3.61 M/uL Hemoglobin 11.3 g/dL Hematocrit 33.2 % Mean Corpuscular Volume 92.0 fL Mean Corpuscular Hemoglobin 31.3 pg Mean Corpuscular Hemoglobin Concent 34.0 g/dl Platelet Count 240 K/uL Mean Platelet Volume 10.9 fL Neutrophils (%) (Auto) 49.6 % Lymphocytes (%) (Auto) 35.0 % Monocytes (%) (Auto) 12.2 % Eosinophils (%) (Auto) 2.4 % Basophils (%) (Auto) 0.5 % Neutrophils # (Auto) 1.83 K/uL Lymphocytes # (Auto) 1.29 K/uL Monocytes # (Auto) 0.45 K/uL Eosinophils # (Auto) 0.09 K/uL Basophils # (Auto) 0.02 K/uL RDW Standard Deviation 45.2 fL RDW Coefficient of Variation 13.4 % Immature Granulocyte % (Auto) 0.3 % Immature Granulocyte # (Auto) 0.01 K/uL Sodium Level 143 mmol/L Potassium Level 3.8 mmol/L Chloride Level 112 mmol/L Carbon Dioxide Level 25 mmol/L Anion Gap 6.0 mmol/L Blood Urea Nitrogen 16 mg/dl Creatinine 0.95 mg/dl Est Creatinine Clear Calc Drug Dose 108.0 ml/min Estimated GFR () 118.9 Estimated GFR (Non- 102.6 BUN/Creatinine Ratio 16.8 Random Glucose 78 mg/dl Estimated Average Glucose 108 mg/dl Hemoglobin A1c 5.4 % Lactic Acid Level 0.5 mmol/L Calcium Level 7.9 mg/dl Phosphorus Level 3.0 mg/dl Magnesium Level 2.4 mg/dl Total Bilirubin 1.0 mg/dl Aspartate Amino Transf (AST/SGOT) 64 U/L Alanine Aminotransferase (ALT/SGPT) 31 U/L Alkaline Phosphatase 70 U/L Total Protein 5.9 gm/dl Albumin 3.2 gm/dl Globulin 2.7 gm/dl Albumin/Globulin Ratio 1.2 Mental Examination Appearance: other (the patient is dressed in a hospital gown and is laying in the hospital bed on the medical service. He is pleasant and cooperative with the examination) Eye contact is: good Motor behavior is: no abnormal motor movements, other (the patient is currently on bed rest.) Speech: normal in rate, rhythm & volume Affect: constricted Mood is: other ("okay" and "pretty good.") Thought process: goal directed, linear, logical, clear, coherent Thought content: other (as above, the patient reports that he had been experiencing depreciating and running commentary auditory hallucinations prior to his admission to the [facility]. He says that he has been experiencing these for "a long time," and that he is not certain where they're coming from, but he thinks that perhaps it's from "people who want to play tricks on him." I was not able to elicit any fixed delusional beliefs at the present time, and he tells me that he presently does not feel unsafe or at any risk for harm from other people.) Suicidal thought are: denied Homicidal thoughts are: denied Hallucinations: auditory (although the patient reports that he had been expressing auditory hallucinations prior to the admission to the [facility],, he denies that he is currently experiencing "voices."), denies visual, tactile, gustatory Cognition: memory grossly intact Intelligence estimated to be: average Insight: limited Judgement: limited Impression / Recommendations Impression When I examined the patient today found him to be pleasant and cooperative. Although he does appear somewhat fatigued, he was fully verbal and spoke clearly and in complete sentences. He describes his mood as "pretty good," and his affect was somewhat constricted, but without evidence of elation, expansiveness, or irritability. He also does not appear to be depressed. Thought processes demonstrate tight associations. He tells me that he had been admitted to the [facility] several days ago because he was "talking to himself" and it was bothering his mother. Upon further examination, he acknowledges that he was experiencing depreciating and running commentary auditory hallucinations, primarily involving a man's voice a man's voice, the record indicates that he was also demonstrating evidence of responding to visual hallucinations, but the patient denies that he was experiencing visual hallucinations. The patient tells me that he is not currently hearing voices, and that he is "not sure" where the voices were coming from. He admits that he has been hearing them periodically for many years. No fixed delusional beliefs were identified and the patient's thought content. He reports that he is not experiencing suicidal ideation and denies any history of suicidal behaviors. He also reports that he is not having any thoughts of harming himself. He says that his goal is to return home to live with his mother. He says that he and his mother have a fairly good relationship, although he acknowledges that he sometimes coats gets on her nerves. I guess she gets undermined sometimes, too. " Diagnosis schizoaffective disorder, bipolar type, most recent episode manic. Currently in remission. Inventory Assets Strengths: Supportive family. History of favorable response to medication. Motivated to achieve and maintain abstinence from chemical substances. Has a GED Needs: Patient has a history of schizoaffective disorder, bipolar type. He also has a extensive history of drug abuse, including alcohol, heroin, opioid medications, cannabis, cocaine, hallucinogens, and tobacco. Complicating and the clinical picture is the fact the patient has a co-occurring history of grand mal seizures , and is not clear if his falls and subsequent obtundation at the [facility] prior to admission here. There is no evidence of head trauma on MRI. The patient has difficulty identifying leisure activities, and says that he spends much of his time doing "not much of anything" at home his activities include video games and "hanging with friends." Risk Factors Assessment Male: Yes : Yes /single/: Yes Higher / Fall in social status: No Access to guns: No Health problems: Yes Mental Health Diagnoses: Yes Substance use disorders: Yes Previous attempt: No Previous attempt;highly lethal: No Previous attempt; planned: No Previous attempt; didn't tell: No Family history of suicide: No Previous psychiatric stay: Yes Hopelessness: No Smoker: No Protective Factors Assessment Religion beliefs: No : No Responsible for young children: No Employed: No Stable relationships: Yes Supportive family: Yes Good rapport with provider: Yes Absence of risk factors above: No Recommendations My recommendations are as follows: #1. Continue Depakote 500 mg twice a day #2. Obtain current serum valproic acid level and adjust dosage as indicated. #3. Discontinue lithium carbonate 150 mg at bedtime. Depakote should suffice as a mood stabilizing agent, and I would have concerns about the patient's ability to adhere properly to a lithium carbonate medication regimen. #4. Discontinue when necessary lorazepam. Patient has a extensive history of substance abuse, and does not currently exhibit any evidence of withdrawal symptoms. #5. Consider discontinuing or reducing Haldol dose if the patient appears overly sedated. Otherwise continue. #6. Discontinue sertraline. I would not recommend that the patient be given an antidepressant particularly given his admitting diagnosis of manic episode at the [facility]. #7. Continue olanzapine 5 mg at bedtime. #8. The patient will require intensive outpatient chemical dependency treatment. Although he tells me that he has not been using chemical substances for 3 months, this report may not be reliable, and he is at substantial risk for relapse, given his diagnosis of bipolar disorder and given his extensive history of substance use. #9. The patient does not require inpatient psychiatric hospitalization at this time. #10. The patient should be referred for outpatient psychiatric treatment upon discharge. It will be important to obtain a therapeutic serum valproic acid level prior to discharge.
--- NOTE | 2017-04-14 13:43 | EEG Procedure Note ---
EEG Procedure Note Date of Service Apr 14, 2017. Start / End Times Start Time: 12:30 PM End Time: 12:[address] Mcintyre History This is a 37-year-old male who presented after an unresponsive state concerning for possible seizure. EEG for further evaluation of seizure etiology. Home Medication List Scheduled Buprenorphine Hcl-Naloxone Hcl (Suboxone 8-2 Mg), 1 DOSE PO BID Diphenhydramine Hcl (Benadryl Allergy), 50 MG PO TID Divalproex Sodium (Depakote), 250 MG PO QAM Divalproex Sodium (Depakote), 500 MG PO HS Folic Acid (Folvite), 1 MG PO DAILY Haloperidol (Haldol), 5 MG PO TID Levetiracetam (Keppra), 500 MG PO BID [place] Carbonate ([place] Carbonate), 150 MG PO HS Lorazepam (Ativan), 1 MG PO DIRECTED Multivitamin (Multivitamin), 1 TAB PO DAILY Olanzapine (Zyprexa), 5 MG PO HS Sertraline (Zoloft), 25 MG PO QAM Thiamine Hcl (Vitamin B-1), 100 MG PO QAM Trazodone Hcl (Trazodone), 100 MG PO HS Inpatient Medication List Current Inpatient Medications Medications (Trade) Dose Ordered Sig/Natalio Route Start Time Stop Time Status Last Admin Dose Admin Folic Acid (Folvite Tab) 1 mg DAILY PO 04/14/17 09:00 05/14/17 08:59 04/14/17 08:34 1 MG Haloperidol (Haldol Tab) 2 mg TID PO 04/13/17 21:00 05/13/17 20:59 Future hold Levetiracetam (Keppra Tab) 500 mg BID PO 04/13/17 15:00 05/13/17 14:59 04/14/17 08:34 500 MG Lorazepam (Ativan Tab) 0.5 mg Q8H PRN PO 04/13/17 13:45 05/13/17 13:44 Multivitamins (Multivitamin Tab) 1 tab DAILY PO 04/14/17 09:00 05/14/17 08:59 04/14/17 08:35 1 TAB Olanzapine (Zyprexa Tab) 5 mg HS PO 04/13/17 21:00 05/13/17 20:59 Future hold Sertraline HCl (Zoloft Tab) 25 mg QAM PO 04/14/17 09:00 05/14/17 08:59 04/14/17 08:35 25 MG Thiamine HCl (Vitamin B-1 Tab) 100 mg QAM PO 04/14/17 09:00 05/14/17 08:59 04/14/17 08:34 100 MG Trazodone HCl (Desyrel Tab) 50 mg HS PRN PO 04/13/17 13:45 05/13/17 13:44 Buprenorphine/ Naloxone (Suboxone Tab) 1 ea BID SL 04/13/17 21:00 05/13/17 20:59 Future Hold [place] Carbonate (Lithobid Tab) 150 mg HS PO 04/13/17 21:00 05/13/17 20:59 04/13/17 21:40 150 MG Sodium Chloride 1,000 ml @ 150 mls/hr Q6H40M IV 04/13/17 16:44 05/13/17 16:43 04/14/17 11:37 150 MLS/HR Famotidine 20 mg/ Dextrose 102 ml @ 200 mls/hr DAILY IV 04/14/17 09:00 05/14/17 08:59 04/14/17 08:35 200 MLS/HR Acetaminophen (Tylenol Tab) 650 mg Q4H PRN PO 04/13/17 14:15 05/13/17 14:14 Al Hydrox/Mg Hydrox/Simethicone (Maalox Max Susp) 15 ml Q4H PRN PO 04/13/17 14:15 05/13/17 14:14 Magnesium Hydroxide (Milk Of Magnesia Susp) 30 ml Q12H PRN PO 04/13/17 14:15 05/13/17 14:14 Polyethylene (Miralax Powder Packet) 17 gm DAILY PRN PO 04/13/17 14:15 05/13/17 14:14 Heparin Sodium (Porcine) (Heparin Sq 5000 Unit/0.5ml) 5,000 unit Q8 SQ 04/13/17 22:00 05/13/17 21:59 Divalproex Sodium (Depakote Delay Rel Tab) 500 mg BID PO 04/14/17 21:00 05/13/17 14:59 Description This is a 21 electrode EEG with a single channel dedicated to limited EKG. The electrodes were placed in accordance with the International 10-20 system. At the start of the recording the patient was in an awake state. Background was well organized and composed of symmetric mixed alpha and beta frequencies. There was a symmetric well-formed moderate amplitude 11-12 Hz posterior dominant rhythm that was reactive to eye opening and closure. Hyperventilation was not done. Intermittent photic stimulation at various frequencies produced no abnormalities. Sleep was indicated by vertex waves and symmetric sleep spindles. Interpretation This is a normal awake and asleep routine EEG. There was no electrographic seizures or epileptiform discharges. Clinical Correlation A normal EEG does not rule out epilepsy if there is a strong clinical suspicion.
[2017-04-14] MEDS: HALOPERIDOL 1 MG TAB PO SCH ×2 (14:10→20:21)
[2017-04-14 15:10] VITALS: BP 133/77; PULSE 75; TEMP 37.2; O2SAT 98
[2017-04-14] MEDS ORDERED: GADAVIST IV PRN (17:00)
--- NOTE | 2017-04-14 17:01 | DIAGNOSTIC IMAGING REPORT ---
MRI OF THE BRAIN WITHOUT AND WITH IV CONTRAST CLINICAL HISTORY: Seizures. Unresponsive episode. Headache. COMPARISON STUDY: 12/01/2015 TECHNIQUE: MRI of the brain was performed from the vertex to the skull base utilizing various T1 and T2 weighted sequences. Following the IV administration of 8 mL of Gadavist contrast, additional enhanced images were obtained. FINDINGS: Sagittal T1, axial diffusion, proton density and T2 weighted axial, coronal FLAIR, and pre and post axial T1-weighted images were acquired. These were supplemented with post gadolinium coronal T1 weighted images. No intra or extra-axial mass lesions are visualized. Axial diffusion-weighted images reveal no evidence of acute or subacute infarction. There is no evidence of ventricular dilatation. Proton density T2-weighted and FLAIR images reveal no significant intraparenchymal signal abnormalities. There are no abnormal flow voids. There is no evidence of pathologic enhancement. There is a stable tubular 20 x 8 mm focus of increased T2 signal within the left nasopharynx at the level of the fossa of Rosenmuller. Thin section coronal T2-weighted images the temporal lobes reveal symmetrical hippocampal formations. IMPRESSION: 1. No acute intracranial findings 2. No evidence of intracranial mass 3. No evidence of acute or subacute infarction 4. Stable tubular 20 x 8 mm cystic/proteinaceous lesion within the left nasopharynx at the level of the fossa of Rosenmuller. Electronically signed by: Chas Mccann M.D. 04/14/2017 5:00 PM Dictated Date/Time: 04/14/2017 4:56 PM
[2017-04-14] MEDS ORDERED: NICOTINE 21 MG/24 HR TDSY TD SCH (19:00)
[2017-04-14 19:15] VITALS: BP 148/82; PULSE 83; TEMP 36.9; O2SAT 97
--- NOTE | 2017-04-14 20:07 | Hospitalist Progress Note ---
Hospitalist Progress Note Date of Service Apr 14, 2017. Subjective Pt evaluation today including: conversation w/ patient Pt feeling better. He reports he was started on several new meds at the [facility] just in the last few days. Discussed case with Neurology today. EEG negative, MRI negative brain. More alert and awake, no joint pains, no complaints All Other Systems: Reviewed and Negative Objective Vital Signs Date Time Temp Pulse Resp B/P (MAP) Pulse Ox O2 Delivery O2 Flow Rate FiO2 04/14/17 16:00 Room Air 04/14/17 15:10 37.2 75 19 133/77 (95) 98 Room Air 04/14/17 12:00 Room Air 04/14/17 11:45 36.6 77 17 133/86 (102) 98 Room Air 04/14/17 08:00 Room Air 04/14/17 04:00 Room Air 04/14/17 02:53 35.9 72 16 124/76 (92) 98 Room Air 04/13/17 23:59 Room Air 04/13/17 23:01 36.7 78 16 128/70 (89) 98 Room Air 04/13/17 20:00 Room Air 04/13/17 19:04 36.2 52 16 130/85 (100) 99 Room Air Physical Exam General Appearance: no apparent distress, + thin (with very poor dentition) Eyes: normal inspection, sclerae normal ENT: hearing grossly normal Neck: trachea midline Respiratory/Chest: lungs clear, normal breath sounds, no respiratory distress, no accessory muscle use Cardiovascular: regular rate, rhythm, no edema, no gallop, no murmur Abdomen: normal bowel sounds, non tender, soft Extremities: no pedal edema, no calf tenderness Neurologic/Psychiatric: alert, + pertinent finding (flat affect. cooperative) Skin: + pertinent finding (multiple small abrasions and ecchymoses on legs and knees) Laboratory Results Last 24 Hours Test 04/14/17 06:55 04/14/17 15:13 White Blood Count 3.69 K/uL Red Blood Count 3.61 M/uL Hemoglobin 11.3 g/dL Hematocrit 33.2 % Mean Corpuscular Volume 92.0 fL Mean Corpuscular Hemoglobin 31.3 pg Mean Corpuscular Hemoglobin Concent 34.0 g/dl Platelet Count 240 K/uL Mean Platelet Volume 10.9 fL Neutrophils (%) (Auto) 49.6 % Lymphocytes (%) (Auto) 35.0 % Monocytes (%) (Auto) 12.2 % Eosinophils (%) (Auto) 2.4 % Basophils (%) (Auto) 0.5 % Neutrophils # (Auto) 1.83 K/uL Lymphocytes # (Auto) 1.29 K/uL Monocytes # (Auto) 0.45 K/uL Eosinophils # (Auto) 0.09 K/uL Basophils # (Auto) 0.02 K/uL RDW Standard Deviation 45.2 fL RDW Coefficient of Variation 13.4 % Immature Granulocyte % (Auto) 0.3 % Immature Granulocyte # (Auto) 0.01 K/uL Sodium Level 143 mmol/L Potassium Level 3.8 mmol/L Chloride Level 112 mmol/L Carbon Dioxide Level 25 mmol/L Anion Gap 6.0 mmol/L Blood Urea Nitrogen 16 mg/dl Creatinine 0.95 mg/dl Est Creatinine Clear Calc Drug Dose 108.0 ml/min Estimated GFR () 118.9 Estimated GFR (Non- 102.6 BUN/Creatinine Ratio 16.8 Random Glucose 78 mg/dl Estimated Average Glucose 108 mg/dl Hemoglobin A1c 5.4 % Lactic Acid Level 0.5 mmol/L Calcium Level 7.9 mg/dl Phosphorus Level 3.0 mg/dl Magnesium Level 2.4 mg/dl Total Bilirubin 1.0 mg/dl Aspartate Amino Transf (AST/SGOT) 64 U/L Alanine Aminotransferase (ALT/SGPT) 31 U/L Alkaline Phosphatase 70 U/L Total Creatine Kinase 2271 U/L Total Protein 5.9 gm/dl Albumin 3.2 gm/dl Globulin 2.7 gm/dl Albumin/Globulin Ratio 1.2 Valproic Acid (Depakene) Level 73 mcg/ml Assessment and Plan Pt is a 37 yo male with a h/o schizoaffective disorder, bipolar disorder, and heroin/marijuana/EtOH abuse, [facility]. He had several falls over the course of the few days he was there. He was started on several new meds to include Zyprexa, Haldol, lorazepam , and Depakote. Found to have rhabdomyolysis and DEBBIE on admission. Lethargy/acute metabolic and toxic encephalopathy, multifactorial secondary to multiple sedating medications and possible seizure. H/o seizures in the past likely related to substance abuse and withdrawal.ECG ok EEG here negative for seizure. Brain MRI negative except for a stable left paranasal tubular structure. -appreciate Neurology recommendations to increase Depakote to 500mg bid, continue Keppra -Appreciate Psych recommendations: stop Linda, stop lorazepam, decrease dose of Haldol which was already done on admission, check valproic acid levels now and prior to discharge, stop Zoloft -f/u with Neuro as outpt for seizure management -continue tele monitoring for arrhythmia Schizoaffective disorder, bipolar type, most recent episode manic. Currently in remission. No inpt Psych recommended as per Psych here-will d/w [facility] to see if should return there vs dc with intensive outpt therapy -adjust meds as above -continue Zyprexa, Haldol, Depakote -check valproic acid level prior to discharge -continue trazodone for sleep Rhabdomyolysis. 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 Secondary to dehydration -follow PRP History of heroin abuse, currently on Suboxone which is held for lethargy -restart Suboxone tomorrow History of alcohol abuse, currently on folic acid and thiamine supplements. -dc lorazepam as no evidence of withdrawal Current smoker- Nicotine patch -he has no desire to quit Proph-IV H2 savi, heparin SQ Dispo-FC, to IOP vs inpt Psych tomorrow
[2017-04-14] MEDS: DIVALPROEX SODIUM 500 MG DELAY RELEASE TAB PO SCH (20:21)
[2017-04-14] MEDS: OLANZAPINE 5 MG TAB PO SCH ×2 (21:14→21:16)
[2017-04-14 23:50] VITALS: BP 172/106; PULSE 118; TEMP 36.4; O2SAT 99
[2017-04-15 03:46] VITALS: BP 128/82; PULSE 85; TEMP 36.9; O2SAT 100
[2017-04-15] MEDS: HEPARIN SOD 5000 UNIT/0.5 ML CARP SQ SCH ×2 (05:47→14:00)
[2017-04-15 07:14] LABS: BASO % 0.2 %; BASO ABS # 0.01 K/uL (0-0.2); COMPLETE YES; EOS % 3.7 %; HEMATOCRIT 34.4 % (42-52); IG% 0.2 %; LYMPH % 31.6 %; LYMPH ABS # 1.36 K/uL (1.2-3.4); MEAN CELL VOLUME 92.7 fL (80-100); MEAN CORPUSCULAR HEMOGLOBIN 31.5 pg (25-34); MEAN PLATELET VOLUME 11.2 fL (7.4-10.4); MONO % 8.6 %; NEUT % 55.7 %; PLATELET COUNT 243 K/uL (130-400); RED BLOOD COUNT 3.71 M/uL (4.7-6.1); WHITE BLOOD COUNT 4.31 K/uL (4.8-10.8)
[2017-04-15 07:25] VITALS: BP 147/91; PULSE 87; TEMP 36.9; O2SAT 98
[2017-04-15 07:53] LABS: BUN/CREATININE RATIO 11.2 (10-20); CALCIUM 8.4 mg/dl (8.5-10.1); CREATININE 0.95 mg/dl (0.60-1.40); MAGNESIUM 2.3 mg/dl (1.8-2.4); POTASSIUM 3.7 mmol/L (3.5-5.1)
[2017-04-15] MEDS: FAMOTIDINE IV INJ 20 MG in DEXTROSE 5% 100ML 100 ML IV SCH (08:25)
[2017-04-15] MEDS: LEVETIRACETAM 500 MG TAB PO SCH (08:28)
[2017-04-15] MEDS: MULTIVITAMIN TAB PO SCH (08:28)
[2017-04-15] MEDS: DIVALPROEX SODIUM 500 MG DELAY RELEASE TAB PO SCH (08:28)
[2017-04-15] MEDS: HALOPERIDOL 1 MG TAB PO SCH ×2 (08:28→13:51)
[2017-04-15] MEDS: THIAMINE HCL 100 MG TAB PO SCH (08:29)
--- NOTE | 2017-04-15 08:54 | Neurology Progress Notes ---
Neurology Progress Note Date of Service Apr 15, 2017. Subjective Patient feels better today. He is a little sleepy but less so than yesterday. He has no complaint of headache or pain. He is not lightheaded or dizzy and has no vision problems. He has no new weakness or numbness of the arms or legs. He has no pain. EEG was normal during a wakeful state. There was nothing focal and there were no potentially epileptogenic discharges seen. MRI of the brain was normal. He had no new or old lesions and no signs of trauma. 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 Laboratory studies were unremarkable including CBC and chem profile. Depakote level yesterday was 73. Objective Date Time Temp Pulse Resp B/P (MAP) Pulse Ox O2 Delivery O2 Flow Rate FiO2 04/15/17 07:25 36.9 87 16 147/91 (109) 98 Room Air 04/15/17 04:00 Room Air 04/15/17 03:46 36.9 85 17 128/82 (97) 100 Room Air 04/15/17 00:00 Room Air 04/14/17 23:50 36.4 118 20 172/106 (128) 99 Room Air 04/14/17 20:00 Room Air 04/14/17 19:15 36.9 83 21 148/82 (104) 97 Room Air 04/14/17 16:00 Room Air 04/14/17 15:10 37.2 75 19 133/77 (95) 98 Room Air 04/14/17 12:00 Room Air 04/14/17 11:45 36.6 77 17 133/86 (102) 98 Room Air Last 24 Hours Test 04/14/17 15:13 04/15/17 06:31 Valproic Acid (Depakene) Level 73 mcg/ml White Blood Count 4.31 K/uL Red Blood Count 3.71 M/uL Hemoglobin 11.7 g/dL Hematocrit 34.4 % Mean Corpuscular Volume 92.7 fL Mean Corpuscular Hemoglobin 31.5 pg Mean Corpuscular Hemoglobin Concent 34.0 g/dl Platelet Count 243 K/uL Mean Platelet Volume 11.2 fL Neutrophils (%) (Auto) 55.7 % Lymphocytes (%) (Auto) 31.6 % Monocytes (%) (Auto) 8.6 % Eosinophils (%) (Auto) 3.7 % Basophils (%) (Auto) 0.2 % Neutrophils # (Auto) 2.40 K/uL Lymphocytes # (Auto) 1.36 K/uL Monocytes # (Auto) 0.37 K/uL Eosinophils # (Auto) 0.16 K/uL Basophils # (Auto) 0.01 K/uL RDW Standard Deviation 45.5 fL RDW Coefficient of Variation 13.6 % Immature Granulocyte % (Auto) 0.2 % Immature Granulocyte # (Auto) 0.01 K/uL Sodium Level 146 mmol/L Potassium Level 3.7 mmol/L Chloride Level 113 mmol/L Carbon Dioxide Level 27 mmol/L Anion Gap 6.0 mmol/L Blood Urea Nitrogen 11 mg/dl Creatinine 0.95 mg/dl Est Creatinine Clear Calc Drug Dose 107.3 ml/min Estimated GFR () 118.9 Estimated GFR (Non- 102.6 BUN/Creatinine Ratio 11.2 Random Glucose 83 mg/dl Calcium Level 8.4 mg/dl Magnesium Level 2.3 mg/dl Total Bilirubin 0.9 mg/dl Direct Bilirubin 0.2 mg/dl Aspartate Amino Transf (AST/SGOT) 54 U/L Alanine Aminotransferase (ALT/SGPT) 35 U/L Alkaline Phosphatase 72 U/L Total Creatine Kinase 1343 U/L Total Protein 6.0 gm/dl Albumin 3.3 gm/dl Imaging: MRI OF THE BRAIN WITHOUT AND WITH IV CONTRAST CLINICAL HISTORY: Seizures. Unresponsive episode. Headache. COMPARISON STUDY: 12/01/2015 TECHNIQUE: MRI of the brain was performed from the vertex to the skull base utilizing various T1 and T2 weighted sequences. Following the IV administration of 8 mL of Gadavist contrast, additional enhanced images were obtained. FINDINGS: Sagittal T1, axial diffusion, proton density and T2 weighted axial, coronal FLAIR, and pre and post axial T1-weighted images were acquired. These were supplemented with post gadolinium coronal T1 weighted images. No intra or extra-axial mass lesions are visualized. Axial diffusion-weighted images reveal no evidence of acute or subacute infarction. There is no evidence of ventricular dilatation. Proton density T2-weighted and FLAIR images reveal no significant intraparenchymal signal abnormalities. There are no abnormal flow voids. There is no evidence of pathologic enhancement. There is a stable tubular 20 x 8 mm focus of increased T2 signal within the left nasopharynx at the level of the fossa of Rosenmuller. Thin section coronal T2-weighted images the temporal lobes reveal symmetrical hippocampal formations. IMPRESSION: 1. No acute intracranial findings 2. No evidence of intracranial mass 3. No evidence of acute or subacute infarction 4. Stable tubular 20 x 8 mm cystic/proteinaceous lesion within the left nasopharynx at the level of the fossa of Rosenmuller. Electronically signed by: Chas Mccann M.D. 04/14/2017 5:00 PM Exam: He is awake and alert. Speech is normal without aphasia or dysarthria. Mood and affect seemed normal and appropriate. Extraocular eye muscles are intact without nystagmus. There is no facial droop. Tongue is midline. With outstretched arms there is no drift. There is no resting, postural, or action tremor. There is no ataxia with [id number] testing. Strength is symmetrical the limbs. Current Inpatient Medications Medications (Trade) Dose Ordered Sig/Natalio Route Start Time Stop Time Status Last Admin Dose Admin Folic Acid (Folvite Tab) 1 mg DAILY PO 04/14/17 09:00 05/14/17 08:59 04/15/17 08:28 1 MG Haloperidol (Haldol Tab) 2 mg TID PO 04/13/17 21:00 05/13/17 20:59 Future hold 04/15/17 08:28 2 MG Levetiracetam (Keppra Tab) 500 mg BID PO 04/13/17 15:00 05/13/17 14:59 04/15/17 08:28 500 MG Multivitamins (Multivitamin Tab) 1 tab DAILY PO 04/14/17 09:00 05/14/17 08:59 04/15/17 08:28 1 TAB Olanzapine (Zyprexa Tab) 5 mg HS PO 04/13/17 21:00 05/13/17 20:59 Future hold 04/14/17 21:16 5 MG Thiamine HCl (Vitamin B-1 Tab) 100 mg QAM PO 04/14/17 09:00 05/14/17 08:59 04/15/17 08:29 100 MG Trazodone HCl (Desyrel Tab) 50 mg HS PRN PO 04/13/17 13:45 05/13/17 13:44 Buprenorphine/ Naloxone (Suboxone Tab) 1 ea BID SL 04/13/17 21:00 05/13/17 20:59 Future Hold Famotidine 20 mg/ Dextrose 102 ml @ 200 mls/hr DAILY IV 04/14/17 09:00 05/14/17 08:59 04/15/17 08:25 200 MLS/HR Acetaminophen (Tylenol Tab) 650 mg Q4H PRN PO 04/13/17 14:15 05/13/17 14:14 Al Hydrox/Mg Hydrox/Simethicone (Maalox Max Susp) 15 ml Q4H PRN PO 04/13/17 14:15 05/13/17 14:14 Magnesium Hydroxide (Milk Of Magnesia Susp) 30 ml Q12H PRN PO 04/13/17 14:15 05/13/17 14:14 Polyethylene (Miralax Powder Packet) 17 gm DAILY PRN PO 04/13/17 14:15 05/13/17 14:14 Heparin Sodium (Porcine) (Heparin Sq 5000 Unit/0.5ml) 5,000 unit Q8 SQ 04/13/17 22:00 05/13/17 21:59 04/15/17 05:47 5,000 UNIT Divalproex Sodium (Depakote Delay Rel Tab) 500 mg BID PO 04/14/17 21:00 05/13/17 14:59 04/15/17 08:28 500 MG Gadobutrol (Gadavist) 8 mmol UD PRN IV 04/14/17 17:00 04/18/17 16:59 Nicotine (Nicoderm Cq 21MG Patch) 1 patch Q24H TD 04/14/17 19:00 05/14/17 18:59 04/14/17 20:20 1 PATCH Miscellaneous (Remove Nicoderm Patch) 1 ea HS N/A 04/14/17 21:00 05/14/17 20:59 Impression 1. Unresponsive episode 04-13. The etiology of this event is not readily apparent but I suspect a seizure with prolonged postictal state. A withdrawal seizure is possible although he was on withdrawal protocol. Currently, he has no evidence of encephalopathy, meningeal signs, or focal neurologic findings. EEG 04-14 was unremarkable. MRI of the brain was unremarkable as well. 2. History of seizures, likely related to drug/alcohol use and abuse. 3. History of schizoaffective disorder, bipolar type currently in remission and on multiple medications. Psychiatry has evaluated the patient and discontinued lithium. They've also reduced Haldol. 4. Elevated CK This is likely secondary to muscle trauma from multiple falls. He has multiple bruises on his body including his right forearm, left orbit, and left upper mid back CK is steadily lowering and now is at 1343. He has no signs of renal failure. 5. Significant drug and alcohol abuse history. Plan 1. Continue Depakote at 500 mg by mouth twice a day 2. Check a trough Depakote level in 5-7 days. 3. The patient is currently on Keppra for now, but I would strongly consider tapering Keppra by 250 mg every 2 weeks until tapered off. He does not need to anticonvulsant medications and Depakote is a more efficacious medication for multiple seizure types than Keppra 4. I have no further neurologic testing or treatment recommendations to make at this time. 5. I could follow this patient as an outpatient for his seizure disorder, if desired. Otherwise, please contact me if I can be of further assistance on this case.
[2017-04-15 11:27] VITALS: BP 148/82; PULSE 75; TEMP 36.9; O2SAT 98
[2017-04-15] MEDS ORDERED: NICO21DI4 TD (15:28)
[2017-04-15] MEDS ORDERED: LEVE500T13 PO (15:28)
[2017-04-15] MEDS ORDERED: HLD1 PO (15:28)
[2017-04-15] MEDS ORDERED: DPKEC500 PO (15:28)
[2017-04-15] MEDS ORDERED: OLAN-111 PO (15:28)
--- NOTE | 2017-04-15 15:35 | Discharge Instructions ---
Discharge Instructions Date of Service Apr 15, 2017. Admission Reason for Admission: Rhabdomyolysis Discharge Discharge Diagnosis / Problem: Rhabdomyolysis, Unresponsive episode Discharge Goals Goal(s): Improve disease control, Diagnostic testing, Therapeutic intervention Activity Recommendations Activity Limitations: resume your previous activity Shower/Bathe: no limitations Driving or Machine Use: No driving . Instructions / Follow-Up Instructions / Follow-Up You were admitted after being found to be unresponsive. You may have had a seizure but you may have been overly sedated by medications. A lot of your medications were either stopped, the doses were reduced, or both. You were started on some new psychiatric and anti-seizure medications as well. It is important to closely follow the new medication list you will receive upon discharge from the hospital. You should have your blood work checked in 5-7 days for your Depakote level and follow up with Dr. Sharp of Neurology for your history of seizures. You should also follow up with your primary care doctor as scheduled and with your Psychiatrist as scheduled. Current Hospital Diet Patient's current hospital diet: Regular Diet Discharge Diet Recommended Diet: Regular Diet Procedures Procedures Performed: EEG Brain MRI CT head and cervical spine Chest xray Pending Studies Studies pending at discharge: no Laboratory Results Hemoglobin A1c Test 04/14/17 06:55 Range/Units Estimated Average Glucose 108 mg/dl Hemoglobin A1c 5.4 4.5-5.6 % Medical Emergencies . Who to Call and When: Medical Emergencies: If at any time you feel your situation is an emergency, please call 911 immediately. . Non-Emergent Contact Non-Emergency issues call your: Primary Care Provider, Neurologist, Specialist (Psychiatrist) Call Non-Emergent contact if: you have any medication questions . . "Provider Documentation" section prepared by Angeline Mcintyre. . VTE Core Measure Inpt VTE Proph given/why not?: Unfractionated heparin SQ
[2017-04-15 15:38] VITALS: BP 148/82; PULSE 75; TEMP 36.9; O2SAT 98
--- NOTE | 2017-05-02 15:19 | Discharge Summary ---
Discharge Summary Date of Service Apr 15, 2017. Discharge Summary Admission Date: Apr 13, 2017 at 14:16 Discharge Date: Apr 15, 2017 Discharge Disposition: Home Principal Diagnosis: Acute toxic encephalopathy, possible seizure Problems/Secondary Diagnoses: heroin/marijuana/EtOH abuse disorder rhabdomyolysis DEBBIE acute metabolic and toxic encephalopathy paranasal tubular structure seen on Head CT Schizoaffective disorder, bipolar type, most recent episode manic. Currently in remission. Current smoker Immunizations: Have You Had Influenza Vaccine: No History of Tetanus Vaccine?: No Procedures: EEG Brain MRI CT head and neck Chest xray Consultations: Neurology Psychiatry Medication Reconciliation New Medications: Divalproex Sodium (Divalproex Sodium Dr) 500 Mg Tabec 500 MG PO BID for 30 Days, #60 TABS Haloperidol (Haloperidol) 1 Mg Tab 2 MG PO TID for 30 Days, #180 TAB Nicotine (Nicoderm Cq) 21 Mg/24 Hr Dis 1 PATCH TD Q24H for 14 Days OTC Changed Medications: Levetiracetam (Keppra) 500 Mg Tab 500 MG PO BID for 30 Days, TAB (Medication details modified) Plan to slowly wean off this med under guidance of Neurology Continued Medications: Buprenorphine Hcl-Naloxone Hcl (Suboxone 8-2 Mg) 1 Sub Sub 1 DOSE PO BID Folic Acid (Folvite) 1 Mg Tab 1 MG PO DAILY, TAB Multivitamin (Multivitamin) Tab 1 TAB PO DAILY, TAB Olanzapine (Zyprexa) 5 Mg Tab 5 MG PO HS for 30 Days, #30 TAB (This prescription has been renewed) Thiamine Hcl (Vitamin B-1) 100 Mg Tab 100 MG PO QAM, TAB Trazodone Hcl (Trazodone) 100 Mg Tab 100 MG PO HS, TAB Discontinued Medications: Diphenhydramine Hcl (Benadryl Allergy) 25 Mg Cap 50 MG PO TID, CAP TAKE WITH 5MG OF HALDOL. Divalproex Sodium (Depakote) 125 Mg Tab 250 MG PO QAM Divalproex Sodium (Depakote) 500 Mg Tab 500 MG PO HS for 30 Days, TAB 2 Refills Haloperidol (Haldol) 5 Mg Tab 5 MG PO TID, TAB TAKE WITH 50MG OF BENADRYL. [place] Carbonate (Lincolnwood Carbonate) 150 Mg Cap 150 MG PO HS, CAP Lorazepam (Ativan) 1 Mg Tab 1 MG PO DIRECTED, TAB TAKE 2(1MG) TABLETS 3 TIMES A DAY FOR 2 DAYS UNTIL March, THEN TAKE 1 (1MG) TABLET 3 TIMES A DAY FOR 2 DAYS, THEN TAKE ONE TABLET EVERY MORNING AND EVERY EVENING AT 1700, THEN TAKE ONE 1MG TABLET EVERY MORNING THEN DISCONTINUE Sertraline (Zoloft) 25 Mg Tab 25 MG PO QAM, TAB Discharge Exam Feeling fine, no problems. Telemetry no significant events. Psychiatry has said that he is not in need of inpatient Psychiatric admission and has arranged outpt follow up Physical Exam General Appearance: no apparent distress, + thin (with very poor dentition) Eyes: normal inspection, sclerae normal ENT: hearing grossly normal Neck: trachea midline Respiratory/Chest: lungs clear, normal breath sounds, no respiratory distress, no accessory muscle use Cardiovascular: regular rate, rhythm, no edema, no gallop, no murmur Abdomen: normal bowel sounds, non tender, soft Extremities: no pedal edema, no calf tenderness Neurologic/Psychiatric: alert, + pertinent finding (flat affect. cooperative) Skin: + pertinent finding (multiple small abrasions and ecchymoses on legs and knees) Review of Systems: Constitutional: No fever Eyes: No problem reported ENT: No problem reported Respiratory: No problem reported Cardiovascular: No problem reported Abdomen: No problem reported Musculoskeletal: No problem reported Genitourinary - Male: No problem reported Neurologic: No problem reported Psychiatric: No problem reported Endocrine: No problem reported Hematologic / Lymphatic: No problem reported Integumentary: No problem reported Hospital Course Pt is a 37 yo male with a h/o schizoaffective disorder, bipolar disorder, and heroin/marijuana/EtOH abuse, here from [facility] after being found unresponsive. He had several falls over the course of the few days he was there. He was started on several new meds to include Zyprexa, Haldol, lorazepam , and Depakote. Found to have rhabdomyolysis and DEBBIE on admission. Lethargy/acute metabolic and toxic encephalopathy, multifactorial secondary to multiple sedating medications and possible seizure. H/o seizures in the past likely related to substance abuse and withdrawal.ECG ok EEG here negative for seizure. Brain MRI negative except for a stable left paranasal tubular structure. Completely resolved. -appreciate Neurology recommendations to increase Depakote to 500mg bid, continue Keppra -Appreciate Psych recommendations: stop [place], stop lorazepam, decrease dose of Haldol which was already done on admission, check valproic acid levels now and prior to discharge and again in 1 week, stop Zoloft -f/u with Neuro as outpt for seizure management -no events on tele monitoring for arrhythmia Schizoaffective disorder, bipolar type, most recent episode manic. Currently in remission. No inpt Psych recommended as per Psych here-will d/w [facility] to see if should return there vs dc with intensive outpt therapy -adjust meds as above -continue Zyprexa, Haldol, Depakote -check valproic acid level in 1 week -continue trazodone for sleep Rhabdomyolysis. 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 Secondary to dehydration -follow PRP History of heroin abuse, currently on Suboxone which was held for lethargy -restart Suboxone on discharge History of alcohol abuse, currently on folic acid and thiamine supplements. -dc lorazepam as no evidence of withdrawal Current smoker- Nicotine patch -he has no desire to quit Proph-IV H2 savi, heparin SQ Dispo-to home with plans for outpatient Psych f/u Total Time Spent: Greater than 30 minutes This includes examination of the patient, discharge planning, medication reconciliation, and communication with other providers. Discharge Instructions Please refer to the electronic Patient Visit Report (Discharge Instructions) for additional information. Follow-Up PCP in 1 week Neuro in 2 weeks Psychiatry in 2 weeks Check Valproic acid level in 1 week Additional Copies To [facility]
== END 2017-04-15 16:02 | disposition home or self-care (01) | DRG 564 ==
LOC: EDBD 10:39 → C.EDC 10:41 → C.2T 14:16 → ENRESERV 15:20
PROVIDERS: ADMIT Internal Medicine; ATTEND Family Medicine
DX: T79.6XXA Traumatic ischemia of muscle, initial encounter (principal); G92 Toxic encephalopathy; N17.9 Acute kidney failure, unspecified; F10.239 Alcohol dependence with withdrawal, unspecified; F11.23 Opioid dependence with withdrawal; T50.7X1A Poisoning by analeptics and opioid receptor antagonists, accidental (unintentional), initial encounter; T43.4X1A Poisoning by butyrophenone and thiothixene neuroleptics, accidental (unintentional), initial encounter; T45.0X1A Poisoning by antiallergic and antiemetic drugs, accidental (unintentional), initial encounter; T43.211A Poisoning by selective serotonin and norepinephrine reuptake inhibitors, accidental (unintentional), initial encounter; T42.4X1A Poisoning by benzodiazepines, accidental (unintentional), initial encounter; W19.XXXA Unspecified fall, initial encounter; Y92.199 Unspecified place in other specified residential institution as the place of occurrence of the external cause; E86.0 Dehydration; R29.6 Repeated falls; G40.909 Epilepsy, unspecified, not intractable, without status epilepticus; F25.0 Schizoaffective disorder, bipolar type; F17.210 Nicotine dependence, cigarettes, uncomplicated; Z79.899 Other long term (current) drug therapy